=== PATIENT | male | born 1935 | race Caucasian/White ===

== ENCOUNTER → 2020-10-05 13:08 | Outpatient (CLI) | payer MEDICARE, OTHER, SELFPAY ==
--- NOTE | 2020-10-05 13:16 | DI.ECHO.S_ITS ---
[facility]---------+ : : [address] : : : : [id number] : : : : Phone: [phone]---------+ Echocardiogram Report + + :Name: GERALD NELSON Study Date: 10/05/2020 Height: 71 in : :[facility] ReadingLocation: Weight: 323 lb : : Gender: Male BSA: 2.6 m2 : :: 1935 Age: 85 yrs BP: 125/79 mmHg: :Reason For Study: ATRIAL FIBRILLATION : :Ordering Physician: KAMRYN, : :JORDY Najera Performed By: Marcela Campos : :Referring: JORDY HARRY : + + Interpretation Summary Patient was very uncomfortable laying on bed also with pain during apical window. 1) Normal left ventricular size with moderately reduced systolic function (EF about 35%). 2) Mildly enlarged right ventricular size with low normal function. There is a catheter/pacemaker lead seen in the right atrium. 3) There is a moderate dyssynchronous contraction pattern due to the paced rhythm. 4) Both atria are very severely dilated 5) No significant valvular abnormalities. 6) The right ventricular systolic pressure is estimated to be at least 41 mmHg based on an estimated right atrial pressure of 8 mm Hg. 7) Compared to the echo done 04/03/2018, LVEF has decreased from about 40% to about 35% on this study. Procedure: A two-dimensional transthoracic echocardiogram with color flow and Doppler was performed. The study quality was technically difficult. Comparison is made with the echocardiogram of 04/03/2018. The patient has a paced rhythm. The heart rate ranged between 60-74 bpm during the study. Left Ventricle: The left ventricle is grossly normal size. The estimated left ventricular end diastolic volume is 129 ml. There is mild-moderate concentric left ventricular hypertrophy. Left ventricular systolic function is moderately reduced. Left ventricular ejection fraction is estimated to be 35 +/- 5%. There is a moderate dyssynchronous contraction pattern due to the paced rhythm. Diastolic function could not be accurately assessed due to paced rhythm. Right Ventricle: There is a pacemaker lead in the right ventricle. The right ventricle is mildly dilated. Right ventricular systolic function is at the lower limits of normal. Atria: There is severe biatrial enlargement. There is a catheter/pacemaker lead seen in the right atrium. There is no Doppler evidence for an interatrial shunt. Mitral Valve: The mitral valve leaflets are slightly calcified. There is mild mitral annular calcification. There is trace mitral regurgitation. Aortic Valve: The aortic valve is trileaflet. The aortic valve is mildly calcified. There is mild aortic valve sclerosis. There is no aortic valve stenosis. There is trace aortic regurgitation. Tricuspid Valve: The tricuspid valve is not well visualized, but is grossly normal. There is mild tricuspid regurgitation. The right ventricular systolic pressure is estimated to be at least 41 mmHg based on an estimated right atrial pressure of 8 mm Hg. Pulmonic Valve: The pulmonic valve is not well visualized. There is no pulmonic valvular regurgitation. Great Vessels: The aortic root is normal size. The ascending aorta is at the upper limits of normal in size. The IVC is dilated (diameter is greater than 2.1 cm) yet it collapses greater than 50% with a sniff. This suggests a right atrial pressure of 8 mm Hg. Pericardium/ Pleura There is no pericardial effusion. There is no pleural effusion. MMode/2D Measurements & Calculations LVIDd: 6.7 cm LVOT diam: 2.6 cm LVIDs: 5.2 cm Ao root diam: 3.8 cm FS: 21.4 % asc Aorta Diam: 3.9 cm IVSd: 1.2 cm Ao Arch Diam (Prox Trans): 3.1 cm LVPWd: 1.2 cm LV light. diameter/BSA (cm/m^2): 2.6 LV sys. diameter/BSA (cm/m^2): 2.0 LA A2 area: 59.4 cm2 RA long axis: 9.1 cm LA A4 area: 62.7 cm2 RA area: 46.5 cm2 LA length (vol): 10.2 cm RA vol: 202.1 ml LA vol: 310.5 ml RA : 78.2 ml/m2 LA vol index: 120.1 ml/m2 IVC diam: 2.5 cm RVD1 (basal): 4.3 cm TAPSE: 1.8 cm Doppler Measurements & Calculations Ao V2 max: 139.3 cm/sec LVOT Max Annie: 65.1 cm/sec Ao V2 mean: 99.4 cm/sec LV V1 max P.7 mmHg Ao max P.8 mmHg LV V1 VTI: 13.1 cm Ao mean P.4 mmHg BHARGAV(I,D): 2.5 cm2 Ao V2 VTI: 27.2 cm BHARGAV(V,D): 2.4 cm2 sev ratio: 0.48 BHARGAV indexed to BSA (cm^2/m^2): 0.95 MV E max annie: 89.3 cm/sec TR max annie: 288.0 cm/sec MV A max annie: 0.95 cm/sec TR max P.2 mmHg MV E/A: 94.2 PA pr(Accel): 31.0 mmHg Med Peak E' Annie: 8.7 cm/sec E/E' med: 10.3 Lat Peak E' Annie: 9.3 cm/sec E/E' lat: 9.6 E/e' average: 9.9 MV dec time: 0.21 sec SV(LVOT): 67.0 ml Reading Physician:04:27 PM
[2020-10-05 15:38] LABS: Free T4, Direct Thyroxine 1.41 ng/dL (0.78-2.19)
[2020-10-05 15:39] LABS: Alanine Aminotransferase 20 IU/L (<50); Albumin 3.8 g/dL (3.5-5.0); Albumin Globulin Ratio 1.4 (1.0-2.8); Alkaline Phosphatase 106 U/L (38-126); Aspartate Aminotransferase 38 IU/L (17-59); BUN Creatinine Ratio 21.6 (6-22); Bilirubin Total 0.9 mg/dL (0.2-1.3); Blood Urea Nitrogen 30 mg/dL (9-20); Calcium 9.1 mg/dL (8.4-10.2); Carbon Dioxide 30 mmol/L (22-32); Chloride 102 mmol/L (98-107); Estimated Glomerular Filt Rate 48.6 mL/min (>60); Globulin 2.8 g/dL (1.7-4.1); Glucose 88 mg/dL (80-110); HEMOLYSIS < 15 (0-50); Potassium 4.8 mmol/L (3.4-5.1); Sodium 138 mmol/L (137-145); Total Protein 6.6 g/dL (6.3-8.2)
[2020-10-05 15:52] LABS: Thyroid Stimulating Hormone 3.11 uIU/mL (0.47-4.68)
== END ==
PROVIDERS: Family Provider Surgery; PCP Internal Medicine; Referring Provider Physician Assistant; Visit Provider Physician Assistant
DX: I08.2 Rheumatic disorders of both aortic and tricuspid valves (principal); I48.21 Permanent atrial fibrillation; R94.2 Abnormal results of pulmonary function studies; Z95.0 Presence of cardiac pacemaker
CPT/HCPCS: 36415; 80053; 84439; 84443; 93306

== ENCOUNTER 2022-05-12 17:10 | Inpatient (IN) | payer MEDICARE, OTHER, SELFPAY ==
[2022-05-12] VITALS (108 sets, daily range): BP systolic 87–162; BP diastolic 50–72; PULSE 60–163; RESP 18–37; TEMP 36.7; O2SAT 89–100; BMI 37.8
--- NOTE | 2022-05-12 17:23 | DI.RAD.S_ITS ---
PROCEDURE: XR CHEST 1V INDICATIONS: chest pain TECHNIQUE: One view of the chest was acquired. COMPARISON: [facility], CR, XR CHEST 2VW, 07/05/2016, 18:55. [facility], CT, CT CHEST ABDOMEN PELVIS WITHOUT CONTRAST, 02/07/2018, 9:18. FINDINGS: Surgical changes and devices: An AICD is seen. Lungs and pleura: On this semiupright study, no large pneumothorax or large pleural effusion can be seen. Generalized patchy infiltrates are seen. Low lung volumes are noted. This causes a crowded appearance to the lung markings and limits evaluation. Mediastinum: The cardiac contours are moderately enlarged.. The aorta demonstrates calcification and tortuosity. Bones and chest wall: No suspicious bony lesions. Age-appropriate bony degenerative changes are seen. Overlying soft tissues appear unremarkable. IMPRESSION: Generalized patchy infiltrates are seen. Differential diagnosis includes atypical infection and pulmonary edema. There is moderate cardiomegaly. Please consider CHF. Low lung volumes are noted. Postoperative and degenerative changes are seen. Dictated by: Ru Burns M.D. on 05/12/2022 at 16:42 Approved by: Ru Burns M.D. on 05/12/2022 at 16:44
--- NOTE | 2022-05-12 17:32 | PC.NURSE ---
Pt presents with SOB on non-rebreather at 15 L/min at 100%. Cap refill 4-5 seconds. 91% on RA. Placed on NC at 3L at 95% by RT. Provider at bedside. Pt has intermittent cough, recent COVID. Crackles at bases, clear in upper [place]. Pt is responsive to voice. Pt c/o of pain to left chest.
[2022-05-12 17:48] LABS: Add Manual Diff / Slide Review NO; Basophils Absolute Auto 0 /uL (0-100); Basophils Percent Auto 0.2 % (0-2); Eosinophils Absolute Auto 100 /uL (0-450); Eosinophils Percent Auto 0.5 % (2-4); Hematocrit 45.4 % (41-53); Hemoglobin 15.1 g/dL (13.5-17.5); Lymphocytes Absolute Auto 400 /uL (1100-4500); Lymphocytes Percent Auto 2.9 % (25-40); Mean Corpuscular HGB Conc 33.3 % (30-36); Mean Corpuscular Hemoglobin 31.6 PG (26-34); Mean Corpuscular Volume 94.8 fL (80-100); Monocytes Absolute Auto 1800 /uL (0-900); Monocytes Percent Auto 12.6 % (3-14); Neutrophils Absolute Auto 12000 /uL (1500-7000); Neutrophils Percent Auto 83.8 % (50-75); Platelet Count 190 X10^3/uL (150-400); Red Blood Cell Count 4.78 X10^6/uL (4.5-5.9); White Blood Cell Count 14.3 X10^3/uL (4.5-11.0)
--- NOTE | 2022-05-12 17:53 | PC.NURSE ---
Pt is beginning to talk more and joking with this RN and daughters. Pt is alert to place, date of and situation. Pt reports his chest discomfort is feeling lots better.
[2022-05-12 17:57] LABS: Prothrombin Time 46.2 SECONDS (10.1-12.7)
[2022-05-12] MEDS: SODIUM CHLORIDE 0.9% 1,000 ML 1000 ML IV (17:57)
[2022-05-12 18:00] LABS: PTT Partial Thromboplastin Tim 51 SECONDS (26-36)
[2022-05-12 18:01] LABS: Lactate (Lactic Acid) 1.1 mmol/L (0.7-2.1)
[2022-05-12 18:02] LABS: Alanine Aminotransferase 33 IU/L (<50); Albumin 2.6 g/dL (3.5-5.0); Albumin Globulin Ratio 0.8 (1.0-2.8); Alkaline Phosphatase 126 U/L (38-126); Aspartate Aminotransferase 28 IU/L (17-59); BUN Creatinine Ratio 32.7 (6-22); Blood Urea Nitrogen 34 mg/dL (9-20); Calcium 7.3 mg/dL (8.4-10.2); Carbon Dioxide 34 mmol/L (22-32); Chloride 98 mmol/L (98-107); Creatine Kinase < 20 U/L (55-170); Estimated Glomerular Filt Rate > 60 mL/min (>60); Globulin 3.2 g/dL (1.7-4.1); Glucose 96 mg/dL (80-110); HEMOLYSIS 17 (0-50); Lipase 71 U/L (23-300); Potassium 4.1 mmol/L (3.4-5.1); Sodium 135 mmol/L (137-145); Total Protein 5.8 g/dL (6.3-8.2)
[2022-05-12 18:14] LABS: NT-proBNP (BNP-Adult 18+) 1500 pg/mL (<450); Troponin I 0.043 ng/mL (0.01-0.034)
[2022-05-12 18:18] LABS: Procalcitonin 0.15 ng/mL (<0.5)
[2022-05-12 18:24] LABS: Adenovirus Not Detected (Not Detect); B. parapertussis Not Detected (Not Detecte); Bordetella pertussis Not Detected (Not Detecte); Chlamydophila pneumoniae Not Detected (Not Detect); Coronavirus 229E Not Detected (Not Detect); Coronavirus HKU1 Not Detected (Not Detect); Coronavirus NL 63 Not Detected (Not Detect); Coronavirus OC43 Not Detected (Not Detect); Human Metapneumovirus Not Detected (Not Detect); Human Rhinovirus/Enterovirus Not Detected (Not Detect); Influenza A Not Detected (Not Detect); Influenza B Not Detected (Not Detect); Mycoplasma pneumoniae Not Detected (Not Detect); Parainfluenza Virus 1 Not Detected (Not Detect); Parainfluenza Virus 2 Not Detected (Not Detect); Parainfluenza Virus 3 Not Detected (Not Detect); Parainfluenza Virus 4 Not Detected (Not Detect); Respiratory Syncytial Virus Not Detected (Not Detect); SARS- CoV-2 Detected (Not Detecte)
--- NOTE | 2022-05-12 18:29 | ED.GENADULT ---
[facility] Chief complaint: Shortness of Breath/Dyspnea Stated complaint: weakness / hypoxia Time Seen by Provider: 05/12/22 17:23 Source: patient Mode of arrival: EMS History of Present Illness HPI narrative: 86-year-old gentleman discharge from [facility] this morning after an 11 day hospital stay for acute respiratory failure secondary to COVID, COPD exacerbation, chronic atrial fibrillation chronic systolic heart failure he did complete a course of remdesivir and dexamethasone noted to be significantly deconditioned after his extended hospital stay and was discharged to [facility]. Within 90 minutes of arrival at [facility] they were concerned that he was relatively hypotensive and hypoxic. [facility] staff report 83% on room air and 2 L oxygen his sats were in the upper 90s. On discharge the intention was to have him on 1-2 L of oxygen once [facility] get [facility] the [facility] facility and it is not entirely clear that that happened. He does have a filled out POLST form that indicates DNR comfort focused treatment that is up-to-date. Additional history is obtained from both of his daughters who were with him through much of his stay it would be general. They note that for the past 24 hours he actually had been weaned off his oxygen. They also note that it was not until he got to [facility] and then arrived at [facility] that he was complaining of slight left-sided chest pain. That is a new complaint for him. Related Data Allergies Allergy/AdvReac Type Severity Reaction Status Date / Time No Known Drug Allergies Allergy Verified 05/12/22 22:22 Review of Systems Review of Systems Narrative: Remainder of complete review of systems is otherwise unremarkable except for that included in the HPI. Patient History Medical History (Updated 05/12/22 @ 22:11 by Shruthi Castellano MD) Atrial fibrillation BPH (benign prostatic hyperplasia) Congestive heart failure COPD (chronic obstructive pulmonary disease) Dementia Pacemaker Sleep apnea Social History Smoking Status: Former smoker Smoking Status: Former smoker tobacco type: cigarettes alcohol intake frequency: 0-2 drinks per day Substance Use Type: does not use Exam Initial Vital Signs Initial Vital Signs: Vital Signs Pulse Rate 60 05/12/22 17:21 Respiratory Rate 21 05/12/22 17:21 Pulse Oximetry 91 05/12/22 17:21 General: Frail, chronically ill-appearing, breathing comfortably but sleeps through much of the exam with his daughters offering history. HEENT: Dry mucous membranes, normal sclera with reactive pupils, Neck: No JVD, supple Respiratory: Lungs with minor bibasilar crackles, no rhonchi, no wheezing no accessory muscle use., Cardiac: Regular rate and rhythm, 4/6 systolic ejection murmur Abdomen: Soft, nontender, good bowel tones, no flank pain Skin: Warm and dry, chronic venous stasis changes bilaterally lower extremities Neurologic: Globally weak, moving all extremities, minimally interactive with staff. Extremities: No trauma, minimal lower extremity edema at this time Psych: Sleeping and not currently interactive. Course Orders Ordered: ED Orders 05/12/22 17:23 XR chest 1V Stat 05/12/22 17:25 Respiratory Panel (Film Array) Stat 05/12/22 17:40 Blood Culture Stat Complete Blood Count AUTO DIFF Stat Comprehensive Metabolic Panel Stat Lactate (Lactic Acid) Stat Lipase Stat NT-proBNP (BNP-Adult 18+) Stat Partial Thromboplastin Time Stat Procalcitonin Stat Prothrombin Time INR Stat Troponin & CK Cardiac Panel Stat 05/12/22 19:45 Trop I [Troponin I] Stat 05/12/22 21:00 UA Complete [Urinalysis and Microscopic] Stat Urine Culture Stat Discontinued Medications Sodium Chloride (Normal Saline 0.9%) 1,000 mls @ 1,000 mls/hr IV BOLUS ONE Stop: 05/12/22 18:51 Last Infusion: 05/12/22 19:00 Dose: 0 mls/hr Documented By: Admin: 05/12/22 17:57 Dose: 1,000 mls/hr Documented By: SB Ceftriaxone Sodium 2,000 mg/ (Sodium Chloride) 100 mls @ 200 mls/hr IV NOW ONE Stop: 05/12/22 21:57 Last Admin: 05/12/22 22:20 Dose: 200 mls/hr Documented By: SB Furosemide 80 mg/ Sodium (Chloride) 58 mls @ 116 mls/hr IV NOW ONE Stop: 05/12/22 22:03 Last Admin: 05/12/22 22:20 Dose: 116 mls/hr Documented By: SB Lidocaine HCl (Lidocaine 2% (Glydo) 6 Ml Gel) 6 ml TOP NOW ONE Stop: 05/12/22 20:48 Last Admin: 05/12/22 21:15 Dose: 6 ml Documented By: SB Vital Signs Vital signs: Vital Signs - 8 hr 05/12/22 17:40 05/12/22 17:21 05/12/22 17:25 Temperature 98.0 F Pulse Rate 60 60 60 Respiratory Rate 23 21 25 H Blood Pressure 100/59 L Pulse Oximetry 100 91 89 L Oxygen Delivery Method Non -Rebreather Oxygen Flow Rate 15 05/12/22 17:27 05/12/22 17:27 05/12/22 17:28 Temperature Pulse Rate 60 Respiratory Rate 24 Blood Pressure 87/50 L 96/52 L Pulse Oximetry 95 Oxygen Delivery Method Oxygen Flow Rate 05/12/22 17:28 05/12/22 17:30 05/12/22 17:32 Temperature Pulse Rate 60 125 H 80 Respiratory Rate 24 24 23 Blood Pressure Pulse Oximetry 94 95 95 Oxygen Delivery Method Oxygen Flow Rate 05/12/22 17:32 05/12/22 17:35 05/12/22 17:36 Temperature Pulse Rate 61 61 Respiratory Rate 27 H 18 Blood Pressure 106/56 L Pulse Oximetry 95 94 Oxygen Delivery Method Oxygen Flow Rate 05/12/22 17:36 05/12/22 17:40 05/12/22 17:40 Temperature Pulse Rate 64 Respiratory Rate 21 Blood Pressure 97/56 L 102/58 L Pulse Oximetry 95 Oxygen Delivery Method Oxygen Flow Rate 05/12/22 17:44 05/12/22 17:44 05/12/22 17:45 Temperature Pulse Rate 60 60 Respiratory Rate 22 23 Blood Pressure 100/59 L Pulse Oximetry 94 96 Oxygen Delivery Method Oxygen Flow Rate 05/12/22 17:48 05/12/22 17:48 05/12/22 17:50 Temperature Pulse Rate 60 60 Respiratory Rate 30 H 24 Blood Pressure 100/56 L Pulse Oximetry 95 95 Oxygen Delivery Method Oxygen Flow Rate 05/12/22 17:55 05/12/22 17:55 05/12/22 17:56 Temperature Pulse Rate 69 Respiratory Rate 32 H Blood Pressure 101/60 108/58 L Pulse Oximetry 94 Oxygen Delivery Method Oxygen Flow Rate 05/12/22 17:56 05/12/22 18:00 05/12/22 18:00 Temperature Pulse Rate 63 61 Respiratory Rate 27 H 29 H Blood Pressure 105/59 L Pulse Oximetry 94 95 Oxygen Delivery Method Nasal Cannula Oxygen Flow Rate 2 05/12/22 18:04 05/12/22 18:04 05/12/22 18:05 Temperature Pulse Rate 60 60 Respiratory Rate 25 H 24 Blood Pressure 105/59 L Pulse Oximetry 95 95 Oxygen Delivery Method Oxygen Flow Rate 05/12/22 18:09 05/12/22 18:09 05/12/22 18:10 Temperature Pulse Rate 60 60 Respiratory Rate 25 H 25 H Blood Pressure 90/58 L Pulse Oximetry 95 95 Oxygen Delivery Method Oxygen Flow Rate 05/12/22 18:13 05/12/22 18:13 05/12/22 18:15 Temperature Pulse Rate 108 H 110 H Respiratory Rate 29 H 24 Blood Pressure 90/53 L Pulse Oximetry 91 95 Oxygen Delivery Method Oxygen Flow Rate 05/12/22 18:17 05/12/22 18:17 05/12/22 18:20 Temperature Pulse Rate 163 H 60 Respiratory Rate 24 22 Blood Pressure 108/56 L Pulse Oximetry 93 95 Oxygen Delivery Method Oxygen Flow Rate 05/12/22 18:21 05/12/22 18:21 05/12/22 18:24 Temperature Pulse Rate 60 60 Respiratory Rate 23 24 Blood Pressure 102/56 L Pulse Oximetry 95 96 Oxygen Delivery Method Oxygen Flow Rate 05/12/22 18:24 05/12/22 18:25 05/12/22 18:29 Temperature Pulse Rate 60 Respiratory Rate 24 Blood Pressure 108/61 94/68 Pulse Oximetry 97 Oxygen Delivery Method Oxygen Flow Rate 05/12/22 18:29 05/12/22 18:30 05/12/22 18:32 Temperature Pulse Rate 60 60 60 Respiratory Rate 24 21 23 Blood Pressure Pulse Oximetry 96 96 95 Oxygen Delivery Method Oxygen Flow Rate 05/12/22 18:32 05/12/22 18:35 05/12/22 18:36 Temperature Pulse Rate 60 60 Respiratory Rate 23 23 Blood Pressure 116/60 Pulse Oximetry 95 95 Oxygen Delivery Method Oxygen Flow Rate 05/12/22 18:36 05/12/22 18:40 05/12/22 18:40 Temperature Pulse Rate 60 Respiratory Rate 25 H Blood Pressure 112/53 L 94/50 L Pulse Oximetry 96 Oxygen Delivery Method Oxygen Flow Rate 05/12/22 18:45 05/12/22 18:45 05/12/22 18:48 Temperature Pulse Rate 61 Respiratory Rate 23 Blood Pressure 114/55 L 109/55 L Pulse Oximetry 96 Oxygen Delivery Method Nasal Cannula Oxygen Flow Rate 2 05/12/22 18:48 05/12/22 18:50 05/12/22 18:52 Temperature Pulse Rate 61 61 61 Respiratory Rate 22 22 21 Blood Pressure Pulse Oximetry 97 95 96 Oxygen Delivery Method Oxygen Flow Rate 05/12/22 18:52 05/12/22 18:55 05/12/22 18:56 Temperature Pulse Rate 60 60 Respiratory Rate 26 H 27 H Blood Pressure 107/59 L Pulse Oximetry 96 96 Oxygen Delivery Method Oxygen Flow Rate 05/12/22 18:56 05/12/22 19:00 05/12/22 19:00 Temperature Pulse Rate 60 Respiratory Rate 23 Blood Pressure 97/55 L 115/56 L Pulse Oximetry 96 Oxygen Delivery Method Oxygen Flow Rate 05/12/22 19:04 05/12/22 19:04 05/12/22 19:05 Temperature Pulse Rate 61 67 Respiratory Rate 23 23 Blood Pressure 113/58 L Pulse Oximetry 96 96 Oxygen Delivery Method Oxygen Flow Rate 05/12/22 19:08 05/12/22 19:08 05/12/22 19:10 Temperature Pulse Rate 62 63 Respiratory Rate 24 32 H Blood Pressure 125/62 Pulse Oximetry 95 95 Oxygen Delivery Method Oxygen Flow Rate 05/12/22 19:13 05/12/22 19:13 05/12/22 19:15 Temperature Pulse Rate 70 97 H Respiratory Rate 34 H Blood Pressure 118/59 L Pulse Oximetry 97 97 Oxygen Delivery Method Oxygen Flow Rate 05/12/22 19:17 05/12/22 19:17 05/12/22 19:20 Temperature Pulse Rate 73 Respiratory Rate 29 H Blood Pressure 135/60 108/55 L Pulse Oximetry 97 Oxygen Delivery Method Oxygen Flow Rate 05/12/22 19:20 05/12/22 19:24 05/12/22 19:24 Temperature Pulse Rate 63 62 Respiratory Rate 25 H 21 Blood Pressure 103/57 L Pulse Oximetry 96 95 Oxygen Delivery Method Oxygen Flow Rate 05/12/22 19:25 05/12/22 19:28 05/12/22 19:28 Temperature Pulse Rate 68 64 Respiratory Rate 25 H 23 Blood Pressure 99/58 L Pulse Oximetry 95 93 Oxygen Delivery Method Oxygen Flow Rate 05/12/22 19:30 05/12/22 19:32 05/12/22 19:32 Temperature Pulse Rate 63 62 Respiratory Rate 23 26 H Blood Pressure 102/57 L Pulse Oximetry 94 94 Oxygen Delivery Method Oxygen Flow Rate 05/12/22 19:35 05/12/22 19:37 05/12/22 19:37 Temperature Pulse Rate 69 62 Respiratory Rate 31 H 24 Blood Pressure 121/67 Pulse Oximetry 94 93 Oxygen Delivery Method Oxygen Flow Rate 05/12/22 19:40 05/12/22 19:40 05/12/22 19:44 Temperature Pulse Rate 60 62 Respiratory Rate 27 H 25 H Blood Pressure 128/63 Pulse Oximetry 94 94 Oxygen Delivery Method Oxygen Flow Rate 05/12/22 19:44 05/12/22 19:45 05/12/22 19:49 Temperature Pulse Rate 61 60 Respiratory Rate 25 H 24 Blood Pressure 115/59 L Pulse Oximetry 94 93 Oxygen Delivery Method Oxygen Flow Rate 05/12/22 19:49 05/12/22 19:50 05/12/22 19:52 Temperature Pulse Rate 60 63 Respiratory Rate 26 H Blood Pressure 110/60 Pulse Oximetry 94 94 Oxygen Delivery Method Oxygen Flow Rate 05/12/22 19:52 05/12/22 19:55 05/12/22 19:56 Temperature Pulse Rate 61 60 Respiratory Rate Blood Pressure 113/58 L Pulse Oximetry 95 93 Oxygen Delivery Method Nasal Cannula Oxygen Flow Rate 2 05/12/22 19:56 05/12/22 20:00 05/12/22 20:01 Temperature Pulse Rate 62 Respiratory Rate Blood Pressure 109/56 L 120/57 L Pulse Oximetry 93 Oxygen Delivery Method Oxygen Flow Rate 05/12/22 20:01 05/12/22 20:05 05/12/22 20:10 Temperature Pulse Rate 68 66 61 Respiratory Rate 34 H 33 H Blood Pressure Pulse Oximetry 92 92 93 Oxygen Delivery Method Oxygen Flow Rate 05/12/22 20:15 05/12/22 20:15 05/12/22 20:20 Temperature Pulse Rate 60 60 Respiratory Rate Blood Pressure 104/52 L Pulse Oximetry 93 94 Oxygen Delivery Method Oxygen Flow Rate 05/12/22 20:25 05/12/22 20:30 05/12/22 20:30 Temperature Pulse Rate 66 61 Respiratory Rate Blood Pressure 104/56 L Pulse Oximetry 93 93 Oxygen Delivery Method Oxygen Flow Rate 05/12/22 20:35 05/12/22 20:40 05/12/22 20:45 Temperature Pulse Rate 61 60 62 Respiratory Rate Blood Pressure Pulse Oximetry 93 94 93 Oxygen Delivery Method Oxygen Flow Rate 05/12/22 20:46 05/12/22 20:46 05/12/22 20:50 Temperature Pulse Rate 61 65 Respiratory Rate Blood Pressure 136/63 Pulse Oximetry 93 94 Oxygen Delivery Method Oxygen Flow Rate 05/12/22 20:55 05/12/22 21:00 05/12/22 21:05 Temperature Pulse Rate 64 61 78 Respiratory Rate Blood Pressure Pulse Oximetry 94 94 94 Oxygen Delivery Method Oxygen Flow Rate 05/12/22 21:07 05/12/22 21:07 05/12/22 21:10 Temperature Pulse Rate 71 62 Respiratory Rate 24 22 Blood Pressure 144/67 H Pulse Oximetry 94 93 Oxygen Delivery Method Oxygen Flow Rate 05/12/22 21:15 05/12/22 21:20 05/12/22 21:25 Temperature Pulse Rate 60 64 60 Respiratory Rate 23 Blood Pressure Pulse Oximetry 93 94 93 Oxygen Delivery Method Oxygen Flow Rate 05/12/22 21:30 05/12/22 21:35 05/12/22 21:40 Temperature Pulse Rate 62 64 69 Respiratory Rate 22 24 34 H Blood Pressure Pulse Oximetry 93 94 94 Oxygen Delivery Method Oxygen Flow Rate 05/12/22 21:45 05/12/22 21:50 05/12/22 21:55 Temperature Pulse Rate 67 64 68 Respiratory Rate 21 Blood Pressure Pulse Oximetry 92 93 93 Oxygen Delivery Method Oxygen Flow Rate 05/12/22 21:58 05/12/22 21:58 05/12/22 22:00 Temperature Pulse Rate 62 62 Respiratory Rate 23 Blood Pressure 129/64 Pulse Oximetry 91 93 Oxygen Delivery Method Oxygen Flow Rate 05/12/22 22:05 05/12/22 22:10 05/12/22 22:15 Temperature Pulse Rate 60 61 60 Respiratory Rate Blood Pressure Pulse Oximetry 94 94 94 Oxygen Delivery Method Oxygen Flow Rate 05/12/22 22:20 05/12/22 22:20 05/12/22 22:25 Temperature Pulse Rate 61 62 Respiratory Rate 30 H 31 H Blood Pressure 130/62 Pulse Oximetry 93 94 Oxygen Delivery Method Oxygen Flow Rate 05/12/22 22:30 05/12/22 22:30 05/12/22 22:35 Temperature Pulse Rate 65 60 Respiratory Rate 27 H 23 Blood Pressure 130/64 Pulse Oximetry 94 93 Oxygen Delivery Method Nasal Cannula Oxygen Flow Rate 2.5 Medical Decision Making Lab Data Result diagrams: 05/12/22 17:40 05/12/22 17:40 Labs: Lab Results 05/12/22 05/12/22 05/12/22 Range/Units 17:25 17:40 17:40 WBC 14.3 H (4.5-11.0) X10^3/uL RBC 4.78 (4.5-5.9) X10^6/uL Hgb 15.1 (13.5-17.5) g/dL Hct 45.4 (41-53) % MCV 94.8 (80-100) fL MCH 31.6 (26-34) PG MCHC 33.3 (30-36) % RDW 15.0 H (11.6-14.8) % Plt Count 190 (150-400) X10^3/uL Neut % (Auto) 83.8 H (50-75) % Lymph % (Auto) 2.9 L (25-40) % [place] % (Auto) 12.6 (3-14) % Eos % (Auto) 0.5 L (2-4) % Baso % (Auto) 0.2 (0-2) % Neut # (Auto) 83571 H (5532-0255) /uL Lymph # (Auto) 400 L (5497-8524) /uL [place] # (Auto) 1800 H (0-900) /uL Eos # (Auto) 100 (0-450) /uL Baso # (Auto) 0 (0-100) /uL PT 46.2 H (10.1-12.7) SECONDS INR 4.0 H (0.9-1.3) APTT 51 H (26-36) SECONDS Sodium (137-145) mmol/L Potassium (3.4-5.1) mmol/L Chloride (98-107) mmol/L Carbon Dioxide (22-32) mmol/L BUN (9-20) mg/dL Creatinine (0.66-1.25) mg/dL Estimated GFR (>60) mL/min BUN/Creatinine Ratio (6-22) Glucose (80-110) mg/dL Lactate (0.7-2.1) mmol/L Calcium (8.4-10.2) mg/dL Total Bilirubin (0.2-1.3) mg/dL AST (17-59) IU/L ALT (<50) IU/L Alkaline Phosphatase (38-126) U/L Total Creatine Kinase (55-170) U/L CK-MB (CK-2) CK-MB (CK-2) Rel Index Troponin I (0.01-0.034) ng/mL NT-Pro-B Natriuret Pep (<450) pg/mL Total Protein (6.3-8.2) g/dL Albumin (3.5-5.0) g/dL Globulin (1.7-4.1) g/dL Albumin/Globulin Ratio (1.0-2.8) Lipase (23-300) U/L Procalcitonin (<0.5) ng/mL Urine Color Urine Appearance Urine pH (4.5-8.0) Ur Specific [place] (1.000-1.035) Urine Protein (Negative) Urine Glucose (UA) (Negative) g/dL Urine Ketones (NEGATIVE) Urine Occult Blood (Negative) Urine Nitrate (Negative) Urine Bilirubin (NEGATIVE) Urine Urobilinogen (0.2) E.U./dL Ur Leukocyte Esterase (NEGATIVE) Urine RBC (0-5/HPF) Urine WBC (0-5/HPF) Ur Squamous Epith Cells (0-5/HPF) Ur Transition Epith Cell (0-5/HPF) Urine Bacteria (None) Ur Culture Indicated? Chlamy pneumoniae PCR Not detected (Not Detect) Adenovirus (PCR) Not detected (Not Detect) B. pertussis DNA (PCR) Not detected (Not Detecte) B.parapertussis DNA PCR Not detected (Not Detecte) Coronavirus OC43 (PCR) Not detected (Not Detect) Coronavirus HKU1 (PCR) Not detected (Not Detect) Coronavirus 229E (PCR) Not detected (Not Detect) SARS-CoV-2 (PCR) Detected H (Not Detecte) Coronavirus NL63 (PCR) Not detected (Not Detect) Human Metapneumovir PCR Not detected (Not Detect) Influenza Type A (PCR) Not detected (Not Detect) Influenza Type B (PCR) Not detected (Not Detect) M. pneumoniae (PCR) Not detected (Not Detect) Parainfluenza 1 (PCR) Not detected (Not Detect) Parainfluenza 2 (PCR) Not detected (Not Detect) Parainfluenza 3 (PCR) Not detected (Not Detect) Parainfluenza 4 (PCR) Not detected (Not Detect) RSV (PCR) Not detected (Not Detect) Entero/Rhino (PCR) Not detected (Not Detect) 05/12/22 05/12/22 05/12/22 Range/Units 17:40 17:40 19:45 WBC (4.5-11.0) X10^3/uL RBC (4.5-5.9) X10^6/uL Hgb (13.5-17.5) g/dL Hct (41-53) % MCV (80-100) fL MCH (26-34) PG MCHC (30-36) % RDW (11.6-14.8) % Plt Count (150-400) X10^3/uL Neut % (Auto) (50-75) % Lymph % (Auto) (25-40) % [place] % (Auto) (3-14) % Eos % (Auto) (2-4) % Baso % (Auto) (0-2) % Neut # (Auto) (1521-0272) /uL Lymph # (Auto) (7477-6621) /uL [place] # (Auto) (0-900) /uL Eos # (Auto) (0-450) /uL Baso # (Auto) (0-100) /uL PT (10.1-12.7) SECONDS INR (0.9-1.3) APTT (26-36) SECONDS Sodium 135 L (137-145) mmol/L Potassium 4.1 (3.4-5.1) mmol/L Chloride 98 (98-107) mmol/L Carbon Dioxide 34 H (22-32) mmol/L BUN 34 H (9-20) mg/dL Creatinine 1.04 (0.66-1.25) mg/dL Estimated GFR > 60 (>60) mL/min BUN/Creatinine Ratio 32.7 H (6-22) Glucose 96 (80-110) mg/dL Lactate 1.1 (0.7-2.1) mmol/L Calcium 7.3 L (8.4-10.2) mg/dL Total Bilirubin 2.0 H (0.2-1.3) mg/dL AST 28 (17-59) IU/L ALT 33 (<50) IU/L Alkaline Phosphatase 126 (38-126) U/L Total Creatine Kinase < 20 L (55-170) U/L CK-MB (CK-2) TNP CK-MB (CK-2) Rel Index TNP Troponin I 0.043 H 0.040 H (0.01-0.034) ng/mL NT-Pro-B Natriuret Pep 1500 H (<450) pg/mL Total Protein 5.8 L (6.3-8.2) g/dL Albumin 2.6 L (3.5-5.0) g/dL Globulin 3.2 (1.7-4.1) g/dL Albumin/Globulin Ratio 0.8 L (1.0-2.8) Lipase 71 (23-300) U/L Procalcitonin 0.15 (<0.5) ng/mL Urine Color Urine Appearance Urine pH (4.5-8.0) Ur Specific [place] (1.000-1.035) Urine Protein (Negative) Urine Glucose (UA) (Negative) g/dL Urine Ketones (NEGATIVE) Urine Occult Blood (Negative) Urine Nitrate (Negative) Urine Bilirubin (NEGATIVE) Urine Urobilinogen (0.2) E.U./dL Ur Leukocyte Esterase (NEGATIVE) Urine RBC (0-5/HPF) Urine WBC (0-5/HPF) Ur Squamous Epith Cells (0-5/HPF) Ur Transition Epith Cell (0-5/HPF) Urine Bacteria (None) Ur Culture Indicated? Chlamy pneumoniae PCR (Not Detect) Adenovirus (PCR) (Not Detect) B. pertussis DNA (PCR) (Not Detecte) B.parapertussis DNA PCR (Not Detecte) Coronavirus OC43 (PCR) (Not Detect) Coronavirus HKU1 (PCR) (Not Detect) Coronavirus 229E (PCR) (Not Detect) SARS-CoV-2 (PCR) (Not Detecte) Coronavirus NL63 (PCR) (Not Detect) Human Metapneumovir PCR (Not Detect) Influenza Type A (PCR) (Not Detect) Influenza Type B (PCR) (Not Detect) M. pneumoniae (PCR) (Not Detect) Parainfluenza 1 (PCR) (Not Detect) Parainfluenza 2 (PCR) (Not Detect) Parainfluenza 3 (PCR) (Not Detect) Parainfluenza 4 (PCR) (Not Detect) RSV (PCR) (Not Detect) Entero/Rhino (PCR) (Not Detect) 05/12/22 Range/Units 21:00 WBC (4.5-11.0) X10^3/uL RBC (4.5-5.9) X10^6/uL Hgb (13.5-17.5) g/dL Hct (41-53) % MCV (80-100) fL MCH (26-34) PG MCHC (30-36) % RDW (11.6-14.8) % Plt Count (150-400) X10^3/uL Neut % (Auto) (50-75) % Lymph % (Auto) (25-40) % [place] % (Auto) (3-14) % Eos % (Auto) (2-4) % Baso % (Auto) (0-2) % Neut # (Auto) (1278-0926) /uL Lymph # (Auto) (4951-0244) /uL [place] # (Auto) (0-900) /uL Eos # (Auto) (0-450) /uL Baso # (Auto) (0-100) /uL PT (10.1-12.7) SECONDS INR (0.9-1.3) APTT (26-36) SECONDS Sodium (137-145) mmol/L Potassium (3.4-5.1) mmol/L Chloride (98-107) mmol/L Carbon Dioxide (22-32) mmol/L BUN (9-20) mg/dL Creatinine (0.66-1.25) mg/dL Estimated GFR (>60) mL/min BUN/Creatinine Ratio (6-22) Glucose (80-110) mg/dL Lactate (0.7-2.1) mmol/L Calcium (8.4-10.2) mg/dL Total Bilirubin (0.2-1.3) mg/dL AST (17-59) IU/L ALT (<50) IU/L Alkaline Phosphatase (38-126) U/L Total Creatine Kinase (55-170) U/L CK-MB (CK-2) CK-MB (CK-2) Rel Index Troponin I (0.01-0.034) ng/mL NT-Pro-B Natriuret Pep (<450) pg/mL Total Protein (6.3-8.2) g/dL Albumin (3.5-5.0) g/dL Globulin (1.7-4.1) g/dL Albumin/Globulin Ratio (1.0-2.8) Lipase (23-300) U/L Procalcitonin (<0.5) ng/mL Urine Color Yellow Urine Appearance Clear Urine pH 5.0 (4.5-8.0) Ur Specific [place] 1.010 (1.000-1.035) Urine Protein Negative (Negative) Urine Glucose (UA) Negative (Negative) g/dL Urine Ketones Negative (NEGATIVE) Urine Occult Blood Trace-intact (Negative) Urine Nitrate Negative (Negative) Urine Bilirubin Negative (NEGATIVE) Urine Urobilinogen 0.2 (0.2) E.U./dL Ur Leukocyte Esterase Negative (NEGATIVE) Urine RBC 0-1/hpf (0-5/HPF) Urine WBC None seen (0-5/HPF) Ur Squamous Epith Cells None seen (0-5/HPF) Ur Transition Epith Cell 0-1/hpf (0-5/HPF) Urine Bacteria Many (>30) H (None) Ur Culture Indicated? Specimen cultured Chlamy pneumoniae PCR (Not Detect) Adenovirus (PCR) (Not Detect) B. pertussis DNA (PCR) (Not Detecte) B.parapertussis DNA PCR (Not Detecte) Coronavirus OC43 (PCR) (Not Detect) Coronavirus HKU1 (PCR) (Not Detect) Coronavirus 229E (PCR) (Not Detect) SARS-CoV-2 (PCR) (Not Detecte) Coronavirus NL63 (PCR) (Not Detect) Human Metapneumovir PCR (Not Detect) Influenza Type A (PCR) (Not Detect) Influenza Type B (PCR) (Not Detect) M. pneumoniae (PCR) (Not Detect) Parainfluenza 1 (PCR) (Not Detect) Parainfluenza 2 (PCR) (Not Detect) Parainfluenza 3 (PCR) (Not Detect) Parainfluenza 4 (PCR) (Not Detect) RSV (PCR) (Not Detect) Entero/Rhino (PCR) (Not Detect) Imaging Data Chest x-ray: Radiologist's Impression: FINDINGS:? ? Surgical changes and devices:? An AICD is seen.? ? Lungs and pleura:? On this semiupright study, no large pneumothorax or large pleural effusion can be seen.? Generalized patchy infiltrates are seen. Low lung volumes are noted. This causes a crowded appearance to the lung markings and limits evaluation.? ? Mediastinum:? The cardiac contours are moderately enlarged.. The aorta demonstrates calcification and tortuosity. ? Bones and chest wall:? No suspicious bony lesions.? Age-appropriate bony degenerative changes are seen.? Overlying soft tissues appear unremarkable.? ? ? IMPRESSION:? Generalized patchy infiltrates are seen.? Differential diagnosis includes atypical infection and pulmonary edema. ? There is moderate cardiomegaly.? Please consider CHF. ? Low lung volumes are noted. ? Postoperative and degenerative changes are seen.? ? ? Dictated by: Ru Burns M.D. on 05/12/2022 at 16:42 ? ? ECG Data Interpretation: Interptreted by me paced at a rate of 60 MDM Narrative Medical decision making narrative: Patient with COVID pneumonia discharged from [facility] this morning found to be hypoxic with room air at [facility] [place], discharge noted indicated he was supposed to be on 1-2 L. workup today suggests mild leukocytosis however he has just completed a long course of dexamethasone. Extensive records from his 11 day hospital stay are reviewed. He does have continued patchy areas on his chest x-ray consistent with his known COVID diagnosis, he continues to test positive via PCR for COVID. BNP is slightly elevated however that has been an issue. With more aggressive diuresis he had been having difficulties with hypotension there are instructions on daily weights and diuretic management for the [facility] facility. Comparison proBNP is in the under 500 range is currently 1500. Troponin is slightly elevated at 0.043 and repeat is 0.040. EKG is entirely paced. I suspect that he has slight worsening of his congestive heart failure with a troponin leak rather than acute coronary syndrome. Urinalysis does suggest multiple bacteria. Will presume that he is developing a urinary tract infection and will begin ceftriaxone. Lactic acid is not elevated and I do not suspect sepsis at this time. Discussed findings with patient and his daughters. At this time, he appears to have worsening congestive heart failure and on re-evaluation at 10:00 p.m. he is having increased oxygen needs developing basilar crackles after the L of fluid that was given initially for mild hypotension. He will be given 80 mg of Lasix. Cath urinalysis shows bacteria and urinary tract infection may explain the leukocytosis, ceftriaxone was initiated. With shared decision-making we opted to move forward with hospitalization given the worsening that were seeing this afternoon probable urinary tract infection and increasing oxygenation needs over the last hour or so. Will discuss with the hospitalist and anticipate brief admission to get him improved enough to go back to his anticipated [facility] facility and truly begin his rehabilitation after his extended hospitalization for COVID. Discharge Plan Departure Patient Disposition: Admitted as Observation Clinical Impression: Pneumonia due to COVID-19 virus, Elevated troponin Congestive heart failure Qualifiers: Heart failure type: unspecified Heart failure chronicity: acute on chronic Qualified Code(s): I50.9 - Heart failure, unspecified Urinary tract infection Qualifiers: Urinary tract infection type: acute cystitis Hematuria presence: without hematuria Qualified Code(s): N30.00 - Acute cystitis without hematuria
[2022-05-12 21:14] LABS: Appearance Urine UA CLEAR; Bilirubin Urine UA NEGATIVE (NEGATIVE); Color Urine UA YELLOW; Glucose Urine UA NEGATIVE (Negative); Ketones Urine UA NEGATIVE (NEGATIVE); Leukocyte Esterase Urine UA NEGATIVE (NEGATIVE); Nitrite Urine UA NEGATIVE (Negative); Occult Blood Urine UA TRACE-INTACT (Negative); Protein Urine UA NEGATIVE (Negative); Urobilinogen Urine UA 0.2 E.U./dL (0.2)
[2022-05-12] MEDS: LIDOCAINE 2% (GLYDO) 6 ML GEL TOP (21:15)
[2022-05-12 21:20] LABS: Bacteria Urine Many (>30); Culture Indicated Urine Specimen Cultured; RBC Urine 0-1/HPF (0-5/HPF); Squamous Epithelial Cell Urine None Seen (0-5/HPF); Transitional Epi Cells Urine 0-1/HPF (0-5/HPF); WBC Urine None Seen (0-5/HPF)
--- NOTE | 2022-05-12 22:04 | PC.NURSE ---
Pt desated to 90% and states, it's getting hard to breath. Pt placed on 2.5 L via NC and saturation improved to 93%. Provider and RT notified. RT placed pt on oxymask at 2.5L and 94% saturation.
[2022-05-12] MEDS: FUROSEMIDE 80 MG in SODIUM CHLORIDE 0.9% 50 ML 116 MG IV (22:20)
[2022-05-12] MEDS: cefTRIAXone 2,000 MG in SODIUM CHLORIDE 0.9% 100 ML 200 MG IV (22:20)
[2022-05-12] MEDS: VANCOMYCIN 2,000 MG/400 ML PIGGYBACK 200 MG IV (23:52)
[2022-05-13] VITALS (34 sets, daily range): BP systolic 104–127; BP diastolic 56–64; PULSE 61–86; RESP 18–40; TEMP 36.4–36.6; O2SAT 88–97; BMI 37.8
[2022-05-13] MEDS: carvediloL 3.125 MG TABLET 6.25 MG PO ×3 (00:13→21:12)
--- NOTE | 2022-05-13 01:49 | PC.NURSE ---
Vancomycin still running while pt transferred upstairs.
--- NOTE | 2022-05-13 02:41 | P.HP_ITS ---
History of Present Illness History of Present Illness Date Patient Seen: 05/13/22 Time Patient Seen: 00:30 Chief complaint: weakness / hypoxia Narrative: Talha López is an 86-year old male with a history of coronary artery disease, cardiac arrest, atrial fibrillation anticoagulated on warfarin, congestive heart failure, and COPD from [place] who apparently had an extended stay at [facility] for symptomatic COVID from approximately May 01 until today (May 12). I quote from [facility]'s note: ?Talha López just arrived at [facility] rehab at 3:00 p.m. from [facility]. Had COVID-, now COVID negative. Since arriving at 3:00 p.m., having chest pain that is increasing. O2 2 L/minute. 3:30 p.m. blood pressure 96/52 heart rate 60 respiratory rate 18 temperature 98? 83% on room air, oxygen begun at 2 L and increased to 90% on 2 L. ?patient is unable to provide a history and I discussed his case with both the ED provider as well as the patient's daughter, Tania Lofton who is also his DPOA. She states that he did complain of left-sided chest pain and was very worried that his AICD would go off. He is afebrile, blood pressure 106/56, heart rate 63, respiratory rate 36, oxygen saturation of 92% on 2.5 L he weighs 126.3 kg with a BMI of 37.8. His white count is elevated at 14.3 with a left shift, neutrophil count 12,000 his INR is 4.0 sodium 135 troponin was initially 0.043 and then trended down to 0.040 likely demand ischemia, proBNP is 1500, he does have bacteria in his urine which was sent out for culture, flu panel is negative but COVID-19 PCR remains positive. Patient History Medical History Acute on chronic systolic (congestive) heart failure Atrial fibrillation BPH (benign prostatic hyperplasia) Chronic obstructive pulmonary disease with acute respiratory failure Congestive heart failure COPD (chronic obstructive pulmonary disease) Dementia Pacemaker Sleep apnea Supratherapeutic INR Surgical History History of colon surgery History of hernia repair History of permanent cardiac pacemaker placement History of placement of internal cardiac defibrillator Family & Social History Family History Father COPD (chronic obstructive pulmonary disease) Mother Medical history unknown Safety & Behavioral: Feels Safe in Current Yes Environment Been Physically Hurt or No Threatened By a Person Tobacco & Substance use: Smoking Status Former smoker alcohol intake frequency 0-2 drinks per day Substance Use Type does not use Meds Home Medications and Allergies Allergies Allergy/AdvReac Type Severity Reaction Status Date / Time No Known Drug Allergies Allergy Verified 05/12/22 22:22 Review of Systems Review of Systems ROS: Yes unobtainable due to mental status Exam Vital Signs (past 8 hours): - 05/12/22 18:45 05/12/22 18:45 05/12/22 18:48 Pulse Rate 61 Respiratory Rate 23 Blood Pressure 114/55 L 109/55 L Pulse Oximetry 96 Oxygen Delivery Method Nasal Cannula Oxygen Flow Rate 2 05/12/22 18:48 05/12/22 18:50 05/12/22 18:52 Pulse Rate 61 61 61 Respiratory Rate 22 21 Blood Pressure Pulse Oximetry 97 95 96 Oxygen Delivery Method Oxygen Flow Rate 05/12/22 18:52 05/12/22 18:55 05/12/22 18:56 Pulse Rate 60 60 Respiratory Rate 26 H 27 H Blood Pressure 107/59 L Pulse Oximetry 96 96 Oxygen Delivery Method Oxygen Flow Rate 05/12/22 18:56 05/12/22 19:00 05/12/22 19:00 Pulse Rate 60 Respiratory Rate 23 Blood Pressure 97/55 L 115/56 L Pulse Oximetry 96 Oxygen Delivery Method Oxygen Flow Rate 05/12/22 19:04 05/12/22 19:04 05/12/22 19:05 Pulse Rate 61 67 Respiratory Rate 23 23 Blood Pressure 113/58 L Pulse Oximetry 96 96 Oxygen Delivery Method Oxygen Flow Rate 05/12/22 19:08 05/12/22 19:08 05/12/22 19:10 Pulse Rate 62 63 Respiratory Rate 24 32 H Blood Pressure 125/62 Pulse Oximetry 95 95 Oxygen Delivery Method Oxygen Flow Rate 05/12/22 19:13 05/12/22 19:13 05/12/22 19:15 Pulse Rate 70 97 H Respiratory Rate 34 H Blood Pressure 118/59 L Pulse Oximetry 97 97 Oxygen Delivery Method Oxygen Flow Rate 05/12/22 19:17 05/12/22 19:17 05/12/22 19:20 Pulse Rate 73 Respiratory Rate 29 H Blood Pressure 135/60 108/55 L Pulse Oximetry 97 Oxygen Delivery Method Oxygen Flow Rate 05/12/22 19:20 05/12/22 19:24 05/12/22 19:24 Pulse Rate 63 62 Respiratory Rate 25 H 21 Blood Pressure 103/57 L Pulse Oximetry 96 95 Oxygen Delivery Method Oxygen Flow Rate 05/12/22 19:25 05/12/22 19:28 05/12/22 19:28 Pulse Rate 68 64 Respiratory Rate 25 H 23 Blood Pressure 99/58 L Pulse Oximetry 95 93 Oxygen Delivery Method Oxygen Flow Rate 05/12/22 19:30 05/12/22 19:32 05/12/22 19:32 Pulse Rate 63 62 Respiratory Rate 23 26 H Blood Pressure 102/57 L Pulse Oximetry 94 94 Oxygen Delivery Method Oxygen Flow Rate 05/12/22 19:35 05/12/22 19:37 05/12/22 19:37 Pulse Rate 69 62 Respiratory Rate 31 H 24 Blood Pressure 121/67 Pulse Oximetry 94 93 Oxygen Delivery Method Oxygen Flow Rate 05/12/22 19:40 05/12/22 19:40 05/12/22 19:44 Pulse Rate 60 62 Respiratory Rate 27 H 25 H Blood Pressure 128/63 Pulse Oximetry 94 94 Oxygen Delivery Method Oxygen Flow Rate 05/12/22 19:44 05/12/22 19:45 05/12/22 19:49 Pulse Rate 61 60 Respiratory Rate 25 H 24 Blood Pressure 115/59 L Pulse Oximetry 94 93 Oxygen Delivery Method Oxygen Flow Rate 05/12/22 19:49 05/12/22 19:50 05/12/22 19:52 Pulse Rate 60 63 Respiratory Rate 26 H Blood Pressure 110/60 Pulse Oximetry 94 94 Oxygen Delivery Method Oxygen Flow Rate 05/12/22 19:52 05/12/22 19:55 05/12/22 19:56 Pulse Rate 61 60 Respiratory Rate Blood Pressure 113/58 L Pulse Oximetry 95 93 Oxygen Delivery Method Nasal Cannula Oxygen Flow Rate 2 05/12/22 19:56 05/12/22 20:00 05/12/22 20:01 Pulse Rate 62 Respiratory Rate Blood Pressure 109/56 L 120/57 L Pulse Oximetry 93 Oxygen Delivery Method Oxygen Flow Rate 05/12/22 20:01 05/12/22 20:05 05/12/22 20:10 Pulse Rate 68 66 61 Respiratory Rate 34 H 33 H Blood Pressure Pulse Oximetry 92 92 93 Oxygen Delivery Method Oxygen Flow Rate 05/12/22 20:15 05/12/22 20:15 05/12/22 20:20 Pulse Rate 60 60 Respiratory Rate Blood Pressure 104/52 L Pulse Oximetry 93 94 Oxygen Delivery Method Oxygen Flow Rate 05/12/22 20:25 05/12/22 20:30 05/12/22 20:30 Pulse Rate 66 61 Respiratory Rate Blood Pressure 104/56 L Pulse Oximetry 93 93 Oxygen Delivery Method Oxygen Flow Rate 05/12/22 20:35 05/12/22 20:40 05/12/22 20:45 Pulse Rate 61 60 62 Respiratory Rate Blood Pressure Pulse Oximetry 93 94 93 Oxygen Delivery Method Oxygen Flow Rate 05/12/22 20:46 05/12/22 20:46 05/12/22 20:50 Pulse Rate 61 65 Respiratory Rate Blood Pressure 136/63 Pulse Oximetry 93 94 Oxygen Delivery Method Oxygen Flow Rate 05/12/22 20:55 05/12/22 21:00 05/12/22 21:05 Pulse Rate 64 61 78 Respiratory Rate Blood Pressure Pulse Oximetry 94 94 94 Oxygen Delivery Method Oxygen Flow Rate 05/12/22 21:07 05/12/22 21:07 05/12/22 21:10 Pulse Rate 71 62 Respiratory Rate 24 22 Blood Pressure 144/67 H Pulse Oximetry 94 93 Oxygen Delivery Method Oxygen Flow Rate 05/12/22 21:15 05/12/22 21:20 05/12/22 21:25 Pulse Rate 60 64 60 Respiratory Rate 21 23 Blood Pressure Pulse Oximetry 93 94 93 Oxygen Delivery Method Oxygen Flow Rate 05/12/22 21:30 05/12/22 21:35 05/12/22 21:40 Pulse Rate 62 64 69 Respiratory Rate 22 24 34 H Blood Pressure Pulse Oximetry 93 94 94 Oxygen Delivery Method Oxygen Flow Rate 05/12/22 21:45 05/12/22 21:50 05/12/22 21:55 Pulse Rate 67 64 68 Respiratory Rate 21 Blood Pressure Pulse Oximetry 92 93 93 Oxygen Delivery Method Oxygen Flow Rate 05/12/22 21:58 05/12/22 21:58 05/12/22 22:00 Pulse Rate 62 62 Respiratory Rate 23 Blood Pressure 129/64 Pulse Oximetry 91 93 Oxygen Delivery Method Oxygen Flow Rate 05/12/22 22:05 05/12/22 22:10 05/12/22 22:15 Pulse Rate 60 61 60 Respiratory Rate Blood Pressure Pulse Oximetry 94 94 94 Oxygen Delivery Method Oxygen Flow Rate 05/12/22 22:20 05/12/22 22:20 05/12/22 22:25 Pulse Rate 61 62 Respiratory Rate 30 H 31 H Blood Pressure 130/62 Pulse Oximetry 93 94 Oxygen Delivery Method Oxygen Flow Rate 05/12/22 22:30 05/12/22 22:30 05/12/22 22:35 Pulse Rate 65 60 Respiratory Rate 27 H 23 Blood Pressure 130/64 Pulse Oximetry 94 93 Oxygen Delivery Method Nasal Cannula Oxygen Flow Rate 2.5 05/12/22 23:15 05/12/22 23:15 05/12/22 23:20 Pulse Rate 75 62 Respiratory Rate 37 H 34 H Blood Pressure 162/72 H Pulse Oximetry 92 93 Oxygen Delivery Method Oxygen Flow Rate 05/12/22 23:25 05/12/22 23:30 05/12/22 23:30 Pulse Rate 61 65 Respiratory Rate 31 H 24 Blood Pressure 130/59 L Pulse Oximetry 95 93 Oxygen Delivery Method Oxygen Flow Rate 05/12/22 23:35 05/12/22 23:40 05/12/22 23:45 Pulse Rate 65 66 Respiratory Rate 24 24 Blood Pressure 122/64 Pulse Oximetry 95 94 Oxygen Delivery Method Oxygen Flow Rate 05/12/22 23:45 05/12/22 23:50 05/12/22 23:55 Pulse Rate 61 66 63 Respiratory Rate 23 28 H 24 Blood Pressure Pulse Oximetry 93 93 93 Oxygen Delivery Method Oxygen Flow Rate 05/13/22 00:00 05/13/22 00:00 05/13/22 00:05 Pulse Rate 65 70 Respiratory Rate 26 H 31 H Blood Pressure 121/58 L Pulse Oximetry 93 93 Oxygen Delivery Method Oxygen Flow Rate 05/13/22 00:10 05/13/22 00:15 05/13/22 00:16 Pulse Rate 64 65 63 Respiratory Rate 25 H 25 H 24 Blood Pressure Pulse Oximetry 92 92 93 Oxygen Delivery Method Oxygen Flow Rate 05/13/22 00:16 05/13/22 00:20 05/13/22 00:25 Pulse Rate 66 73 Respiratory Rate 26 H 37 H Blood Pressure 104/58 L Pulse Oximetry 91 91 Oxygen Delivery Method Oxygen Flow Rate 05/13/22 00:30 05/13/22 00:31 05/13/22 00:31 Pulse Rate 63 67 Respiratory Rate 29 H 31 H Blood Pressure 117/64 Pulse Oximetry 88 L 89 L Oxygen Delivery Method Oxygen Flow Rate 05/13/22 00:35 05/13/22 00:40 05/13/22 00:45 Pulse Rate 64 65 Respiratory Rate 35 H 33 H Blood Pressure 113/64 Pulse Oximetry 90 L 92 Oxygen Delivery Method Oxygen Flow Rate 05/13/22 00:45 05/13/22 00:50 05/13/22 00:55 Pulse Rate 62 64 69 Respiratory Rate 28 H 27 H 30 H Blood Pressure Pulse Oximetry 92 91 95 Oxygen Delivery Method Oxygen Flow Rate 05/13/22 01:00 05/13/22 01:05 05/13/22 01:10 Pulse Rate 65 70 66 Respiratory Rate 39 H 26 H 31 H Blood Pressure Pulse Oximetry 93 93 93 Oxygen Delivery Method Oxygen Flow Rate 05/13/22 01:15 05/13/22 01:16 05/13/22 01:20 Pulse Rate 65 61 Respiratory Rate 40 H 32 H Blood Pressure 112/59 L Pulse Oximetry 92 94 Oxygen Delivery Method Oxygen Flow Rate 05/13/22 01:25 05/13/22 01:30 05/13/22 01:30 Pulse Rate 66 65 Respiratory Rate 30 H 34 H Blood Pressure 104/57 L Pulse Oximetry 93 92 Oxygen Delivery Method Oxygen Flow Rate 05/13/22 01:35 05/13/22 01:40 05/13/22 01:45 Pulse Rate 86 65 Respiratory Rate 39 H 31 H Blood Pressure 106/56 L Pulse Oximetry 94 93 Oxygen Delivery Method Oxygen Flow Rate 05/13/22 01:45 05/13/22 01:50 05/13/22 01:55 Pulse Rate 65 63 62 Respiratory Rate 31 H 30 H 29 H Blood Pressure Pulse Oximetry 93 95 94 Oxygen Delivery Method Oxygen Flow Rate 05/13/22 02:00 05/13/22 02:05 Pulse Rate 65 63 Respiratory Rate 28 H 36 H Blood Pressure Pulse Oximetry 94 92 Oxygen Delivery Method Oxygen Flow Rate Oxygen Delivery Method Nasal Cannula Oxygen Flow Rate 2.5 Narrative Exam Narrative: Gen: Alert, oriented, ill appearing 86 y.o. male, on CPAP HEENT: normocephalic, atraumatic, conjunctiva clear, sclera non-icteric, oral mucosa pink and moist Neck: supple, full ROM, no JVD, trachea is midline Resp: Lungs sounds restricted, tachypnic CV: RRR, no murmur or rubs Abd: soft, non-tender, normoactive BTs Skin: no lesions or rashes, dry and intact Neuro: appears to be confused, not noted to be his baseline, difficult to speak through CPAP mask Extremities: moves all 4 extremities, is ambulatory, negative David?s sign Psyche: normal mood and affect. Objective Labs Result Diagrams: 05/12/22 17:40 05/12/22 17:40 Labs: Laboratory Results - last 24 hr 05/12/22 05/12/22 05/12/22 17:25 17:40 17:40 WBC 14.3 H RBC 4.78 Hgb 15.1 Hct 45.4 MCV 94.8 MCH 31.6 MCHC 33.3 RDW 15.0 H Plt Count 190 Neut % (Auto) 83.8 H Lymph % (Auto) 2.9 L Ulster % (Auto) 12.6 Eos % (Auto) 0.5 L Baso % (Auto) 0.2 Neut # (Auto) 79415 H Lymph # (Auto) 400 L Ulster # (Auto) 1800 H Eos # (Auto) 100 Baso # (Auto) 0 PT 46.2 H INR 4.0 H APTT 51 H Sodium Potassium Chloride Carbon Dioxide BUN Creatinine Estimated GFR BUN/Creatinine Ratio Glucose Lactate Calcium Total Bilirubin AST ALT Alkaline Phosphatase Total Creatine Kinase CK-MB (CK-2) CK-MB (CK-2) Rel Index Troponin I NT-Pro-B Natriuret Pep Total Protein Albumin Globulin Albumin/Globulin Ratio Lipase Procalcitonin Urine Color Urine Appearance Urine pH Ur Specific Garnett Urine Protein Urine Glucose (UA) Urine Ketones Urine Occult Blood Urine Nitrate Urine Bilirubin Urine Urobilinogen Ur Leukocyte Esterase Urine RBC Urine WBC Ur Squamous Epith Cells Ur Transition Epith Cell Urine Bacteria Ur Culture Indicated? Chlamy pneumoniae PCR Not detected Adenovirus (PCR) Not detected B. pertussis DNA (PCR) Not detected B.parapertussis DNA PCR Not detected Coronavirus OC43 (PCR) Not detected Coronavirus HKU1 (PCR) Not detected Coronavirus 229E (PCR) Not detected SARS-CoV-2 (PCR) Detected H Coronavirus NL63 (PCR) Not detected Human Metapneumovir PCR Not detected Influenza Type A (PCR) Not detected Influenza Type B (PCR) Not detected M. pneumoniae (PCR) Not detected Parainfluenza 1 (PCR) Not detected Parainfluenza 2 (PCR) Not detected Parainfluenza 3 (PCR) Not detected Parainfluenza 4 (PCR) Not detected RSV (PCR) Not detected Entero/Rhino (PCR) Not detected 05/12/22 05/12/22 05/12/22 17:40 17:40 19:45 WBC RBC Hgb Hct MCV MCH MCHC RDW Plt Count Neut % (Auto) Lymph % (Auto) Ul[place] % (Auto) Eos % (Auto) Baso % (Auto) Neut # (Auto) Lymph # (Auto) [place] # (Auto) Eos # (Auto) Baso # (Auto) PT INR APTT Sodium 135 L Potassium 4.1 Chloride 98 Carbon Dioxide 34 H BUN 34 H Creatinine 1.04 Estimated GFR > 60 BUN/Creatinine Ratio 32.7 H Glucose 96 Lactate 1.1 Calcium 7.3 L Total Bilirubin 2.0 H AST 28 ALT 33 Alkaline Phosphatase 126 Total Creatine Kinase < 20 L CK-MB (CK-2) TNP CK-MB (CK-2) Rel Index TNP Troponin I 0.043 H 0.040 H NT-Pro-B Natriuret Pep 1500 H Total Protein 5.8 L Albumin 2.6 L Globulin 3.2 Albumin/Globulin Ratio 0.8 L Lipase 71 Procalcitonin 0.15 Urine Color Urine Appearance Urine pH Ur Specific Garnett Urine Protein Urine Glucose (UA) Urine Ketones Urine Occult Blood Urine Nitrate Urine Bilirubin Urine Urobilinogen Ur Leukocyte Esterase Urine RBC Urine WBC Ur Squamous Epith Cells Ur Transition Epith Cell Urine Bacteria Ur Culture Indicated? Chlamy pneumoniae PCR Adenovirus (PCR) B. pertussis DNA (PCR) B.parapertussis DNA PCR Coronavirus OC43 (PCR) Coronavirus HKU1 (PCR) Coronavirus 229E (PCR) SARS-CoV-2 (PCR) Coronavirus NL63 (PCR) Human Metapneumovir PCR Influenza Type A (PCR) Influenza Type B (PCR) M. pneumoniae (PCR) Parainfluenza 1 (PCR) Parainfluenza 2 (PCR) Parainfluenza 3 (PCR) Parainfluenza 4 (PCR) RSV (PCR) Entero/Rhino (PCR) 05/12/22 21:00 WBC RBC Hgb Hct MCV MCH MCHC RDW Plt Count Neut % (Auto) Lymph % (Auto) [place] % (Auto) Eos % (Auto) Baso % (Auto) Neut # (Auto) Lymph # (Auto) [place] # (Auto) Eos # (Auto) Baso # (Auto) PT INR APTT Sodium Potassium Chloride Carbon Dioxide BUN Creatinine Estimated GFR BUN/Creatinine Ratio Glucose Lactate Calcium Total Bilirubin AST ALT Alkaline Phosphatase Total Creatine Kinase CK-MB (CK-2) CK-MB (CK-2) Rel Index Troponin I NT-Pro-B Natriuret Pep Total Protein Albumin Globulin Albumin/Globulin Ratio Lipase Procalcitonin Urine Color Yellow Urine Appearance Clear Urine pH 5.0 Ur Specific Garnett 1.010 Urine Protein Negative Urine Glucose (UA) Negative Urine Ketones Negative Urine Occult Blood Trace-intact Urine Nitrate Negative Urine Bilirubin Negative Urine Urobilinogen 0.2 Ur Leukocyte Esterase Negative Urine RBC 0-1/hpf Urine WBC None seen Ur Squamous Epith Cells None seen Ur Transition Epith Cell 0-1/hpf Urine Bacteria Many (>30) H Ur Culture Indicated? Specimen cultured Chlamy pneumoniae PCR Adenovirus (PCR) B. pertussis DNA (PCR) B.parapertussis DNA PCR Coronavirus OC43 (PCR) Coronavirus HKU1 (PCR) Coronavirus 229E (PCR) SARS-CoV-2 (PCR) Coronavirus NL63 (PCR) Human Metapneumovir PCR Influenza Type A (PCR) Influenza Type B (PCR) M. pneumoniae (PCR) Parainfluenza 1 (PCR) Parainfluenza 2 (PCR) Parainfluenza 3 (PCR) Parainfluenza 4 (PCR) RSV (PCR) Entero/Rhino (PCR) Assessment & Plan Assessment & Plan narrative: Talha López is admitted for acute respiratory failure likely in the setting of acute on chronic CHF and COPD exacerbations and COVID-19 recovery. Acute respiratory failure, present on admission * RT is working with him for supplemental oxygen needs * He will receive albuterol and DuoNeb nebulizers * He received a 1 time dose of IV vancomycin and ceftriaxone in the emergency department for suspected UTI and HAP pneumonia. Vancomycin and ceftriaxone will be continued. Acute on chronic CHF exacerbation, acute, present on admission with a CHADS VASC score of 5 * Review of [facility] records stated that the patient had his last echocardiogram 4 years ago however in our records we have an echocardiogram from 2020 indicating that the patient has a 35 ejection fraction and is not currently on an ARB but is taking a beta leelee. * Patient has a history of atrial fibrillation and is paced with an AICD. 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 * Repeat complete echo in the morning. Supratherapeutic INR of 4.0, present on admission * Patient appears to normally take warfarin 2 mg daily and will hold. Coronary artery disease, chronic * Continue home dose of atorvastatin 10 mg p.o. daily COVID-19, tested positive on May 01 * Patient received a 6 day course of IV remdesivir as well as dexamethasone. * He is still testing positive so airborne precautions are ordered. Urinary tract infection, presumed to be acute, present on admission * Culture is pending * Coverage with IV vancomycin and ceftriaxone Advanced care planning * Patient has a POLST that was filled out at [facility] indicating he is a DNR/DNI on comfort measures only. Tania, his daughter states that he has a POLST form on his refrigerator in his home. It appears that he is a DNR/DNI but wants limited intervention. Daughter will contact the daytime provider to update or invalidate the POLST form that was prepared by [facility] as it appears it does not reflect what the patient or family desires. * Time spent on advanced care plannin minutes. VTE Prophylaxis: Wells risk score 0 C Bilateral SCDs Patient is currently anticoagulated on warfarin and is currently supratherapeutic. Patient is admitted to the inpatient service due to the severity of disease, risks of further disease progression and this stay is expected to exceed 2 midnights. FEN: IV fluids: Saline lock, diet: Heart healthy, labs: CBC, C/BMP, liver enzymes, Mag, PT/INR Consultants None Dispo: Plan was for the patient to go into rehab though he has expressed a de sire to return home with the nursing hours that he has. Code status: DNR/DNI as discussed with the patient who identifies [] as [] his [] her surrogate and POA. [X] I have utilized all available immediate resources to obtain, update, or review of the patient's current medications VTE Deep Vein Thrombosis/Pulmonary Embolism Present on Admission: No MIPS - Admit I confirm the patient?s Advance Care Plan is present, Code status is documented, Surrogate decision maker is in patient?s record: Yes COVID-19 COVID-19 status: Positive Result date/Date tested (Pos, Neg/Pending): 05/12/22 Scores CHADS-VASc Congestive heart failure: yes Hypertension: yes Age 75 years or older: yes Diabetes mellitus: no Stroke, TIA, or TE: no Vascular disease: yes Age 65 to 74 years: no Sex category (female): Male CHADS-VASc Score: 5 Quality MIPS - DC The patient has a history of heart transplant or Left Ventricular Assist Device (LVAD). If yes, STOP here.: Yes A. The patient was prescribed or already taking an Angiotensin-Converting Enzyme (SAMI) Inhibitor, or Angiotensin Receptor Leelee (ARB).: No B. The patient was prescribed or already taking a beta-leelee. [If Yes to Both A & B, STOP here]: Yes Patient not prescribed/taking SAMI or ARB for medical/patient reason(s) including (ex: allergy, intolerance, contraindication).: Unknown. Will obtain cardiology records.
[2022-05-13] MEDS: FUROSEMIDE 40 MG/4 ML VIAL IV (11:27)
[2022-05-13 12:03] LABS: Magnesium 1.9 mg/dL (1.6-2.3)
--- NOTE | 2022-05-13 12:18 | CM.DANOTE ---
Patient is an 86 yo male who was admitted on 05/12/22 for Weakness/Hypoxia. Pt has [employer] for insurance and his PCP is Gaurav Borja. EMR was reviewed. Per , pt with hx of recent COVID+ pneumonia at [facility] and now admitted for Resp Failure/CHF/COPD from recovery of COVID and possible UTI. Per RN, pt currently on COVID precautions as still testing positive from initial COVID and confused due to his oxygen levels and maybe UTI and requiring 2PA currently. SW confirmed with [facility] admissions that pt had just discharged from [facility] from his stay 05/01/22-05/12/22 to their facility yesterday and was in their building less than a few hours when he admitted to [facility]. [facility] can accept pt back when medically stable and pt already has Medicare qualifying stay from [facility] and pt's COVID+ is not a barrier as he is outside of his need for quarantine from initial positive test. No PASRR needed as pt was admitted from SNF. [facility] states per Dtr, pt lives alone in [place] but has local supportive family and PP CG 4-5 hours a day and maybe a visiting nurse and family states pt typically is not very confused but when his oxygen levels are lower or UTI he gets much more confused. SW left Dtr/DPOA Tania lind msg requesting call back to confirm if they would like pt to d/c back to [facility]. Return call from Jane confirming they would like pt to d/c to [facility] when medically stable. Plan: SW to follow closely for pt to improve towards returning to [facility] SNF rehab when medically stable and no 3 night stay needed as pt recently had a qualifying stay from [facility]. No PASRR needed either. DIANA Young Discharge Planning/Care Management Advanced directive, confirm from FAMILY Start: 05/13/22 03:36 Freq: Q24H Status: Active Protocol: Document 05/13/22 09:12 YAD (Rec: 05/13/22 09:12 YAD [id number]) Advance Directive, confirm on record Time 09:12 Person contacted patient Copy received No CM Discharge Assessment Start: 05/13/22 12:15 Freq: Status: Active Protocol: Document 05/13/22 12:15 BF (Rec: 05/13/22 12:18 BF [id number]) Discharge Planning Assessment Assigned Manager Laundry DIANA Tan DPOA/Assigned Designee Name Dtr Tania Parker Contact Information [phone] Advance Directives? Yes Advance Directives on File No History Provided By Family Member,Medical Record Has Patient been admitted in last 30 No days? Comment recently was admitted to [facility] from 05/01- for COVID pneumonia Prior Living Arrangements House Household Members none Comment Has PP CG 4-5 hours a day Type of transporation used prior to Relies on Others admit Independent with ADL's No Is patient alert and oriented? Yes: mostly, has some confusion at times Needs Assistance With Meal Prep,Managing Medications ,Home Chores / Shopping Caregiver for Another No Patient/Family Preference [facility] Facility Barriers to Discharge No Discharge Plan Penit[facility]iary Facility Transportation Arrangement SNF facility van Referrals Initiated [facility]it[facility]iary If patient plan is SNF: Has PASSR been No: none needed as pt was completed? admitted from SNF Review Status In Process Please Provide Date Initial DC 05/13/22 Assessment Was Performed Next Review Type Continued Stay Review
--- NOTE | 2022-05-13 14:13 | P.PN_ITS ---
Subjective Subjective Date Patient Seen: 05/13/22 Time Patient Seen: 08:00 Interval history: He looks uncomfortable. He denies any complaints though. Exam Vital Signs (past 8 hours): - 05/13/22 08:38 05/13/22 09:06 05/13/22 11:41 Temperature 97.8 F Pulse Rate 74 Respiratory Rate 18 Blood Pressure 127/56 L Pulse Oximetry 92 94 Oxygen Delivery Method Nasal Cannula Oxygen Flow Rate 3 2 Oxygen Delivery Method Nasal Cannula Oxygen Flow Rate 2 Narrative Exam Narrative: Gen: chronically ill appearing, disheveled, confused Resp: decreased breath sounds bilaterally CV: regular rate and rhythm Abd: soft, non-tender, nondistended Objective Labs Result Diagrams: 05/12/22 17:40 05/12/22 17:40 Labs: Laboratory Results - last 24 hr 05/12/22 05/12/22 05/12/22 17:25 17:40 17:40 WBC 14.3 H RBC 4.78 Hgb 15.1 Hct 45.4 MCV 94.8 MCH 31.6 MCHC 33.3 RDW 15.0 H Plt Count 190 Neut % (Auto) 83.8 H Lymph % (Auto) 2.9 L Dubois % (Auto) 12.6 Eos % (Auto) 0.5 L Baso % (Auto) 0.2 Neut # (Auto) 10834 H Lymph # (Auto) 400 L Dubois # (Auto) 1800 H Eos # (Auto) 100 Baso # (Auto) 0 PT 46.2 H INR 4.0 H APTT 51 H Sodium Potassium Chloride Carbon Dioxide BUN Creatinine Estimated GFR BUN/Creatinine Ratio Glucose Lactate Calcium Magnesium Total Bilirubin AST ALT Alkaline Phosphatase Total Creatine Kinase CK-MB (CK-2) CK-MB (CK-2) Rel Index Troponin I NT-Pro-B Natriuret Pep Total Protein Albumin Globulin Albumin/Globulin Ratio Lipase Procalcitonin Urine Color Urine Appearance Urine pH Ur Specific [place] Urine Protein Urine Glucose (UA) Urine Ketones Urine Occult Blood Urine Nitrate Urine Bilirubin Urine Urobilinogen Ur Leukocyte Esterase Urine RBC Urine WBC Ur Squamous Epith Cells Ur Transition Epith Cell Urine Bacteria Ur Culture Indicated? Chlamy pneumoniae PCR Not detected Adenovirus (PCR) Not detected B. pertussis DNA (PCR) Not detected B.parapertussis DNA PCR Not detected Coronavirus OC43 (PCR) Not detected Coronavirus HKU1 (PCR) Not detected Coronavirus 229E (PCR) Not detected SARS-CoV-2 (PCR) Detected H Coronavirus NL63 (PCR) Not detected Human Metapneumovir PCR Not detected Influenza Type A (PCR) Not detected Influenza Type B (PCR) Not detected M. pneumoniae (PCR) Not detected Parainfluenza 1 (PCR) Not detected Parainfluenza 2 (PCR) Not detected Parainfluenza 3 (PCR) Not detected Parainfluenza 4 (PCR) Not detected RSV (PCR) Not detected Entero/Rhino (PCR) Not detected 05/12/22 05/12/22 05/12/22 17:40 17:40 19:45 WBC RBC Hgb Hct MCV MCH MCHC RDW Plt Count Neut % (Auto) Lymph % (Auto) Dubois % (Auto) Eos % (Auto) Baso % (Auto) Neut # (Auto) Lymph # (Auto) Dubois # (Auto) Eos # (Auto) Baso # (Auto) PT INR APTT Sodium 135 L Potassium 4.1 Chloride 98 Carbon Dioxide 34 H BUN 34 H Creatinine 1.04 Estimated GFR > 60 BUN/Creatinine Ratio 32.7 H Glucose 96 Lactate 1.1 Calcium 7.3 L Magnesium 1.9 Total Bilirubin 2.0 H AST 28 ALT 33 Alkaline Phosphatase 126 Total Creatine Kinase < 20 L CK-MB (CK-2) TNP CK-MB (CK-2) Rel Index TNP Troponin I 0.043 H 0.040 H NT-Pro-B Natriuret Pep 1500 H Total Protein 5.8 L Albumin 2.6 L Globulin 3.2 Albumin/Globulin Ratio 0.8 L Lipase 71 Procalcitonin 0.15 Urine Color Urine Appearance Urine pH Ur Specific [place] Urine Protein Urine Glucose (UA) Urine Ketones Urine Occult Blood Urine Nitrate Urine Bilirubin Urine Urobilinogen Ur Leukocyte Esterase Urine RBC Urine WBC Ur Squamous Epith Cells Ur Transition Epith Cell Urine Bacteria Ur Culture Indicated? Chlamy pneumoniae PCR Adenovirus (PCR) B. pertussis DNA (PCR) B.parapertussis DNA PCR Coronavirus OC43 (PCR) Coronavirus HKU1 (PCR) Coronavirus 229E (PCR) SARS-CoV-2 (PCR) Coronavirus NL63 (PCR) Human Metapneumovir PCR Influenza Type A (PCR) Influenza Type B (PCR) M. pneumoniae (PCR) Parainfluenza 1 (PCR) Parainfluenza 2 (PCR) Parainfluenza 3 (PCR) Parainfluenza 4 (PCR) RSV (PCR) Entero/Rhino (PCR) 05/12/22 21:00 WBC RBC Hgb Hct MCV MCH MCHC RDW Plt Count Neut % (Auto) Lymph % (Auto) Dubois % (Auto) Eos % (Auto) Baso % (Auto) Neut # (Auto) Lymph # (Auto) Dubois # (Auto) Eos # (Auto) Baso # (Auto) PT INR APTT Sodium Potassium Chloride Carbon Dioxide BUN Creatinine Estimated GFR BUN/Creatinine Ratio Glucose Lactate Calcium Magnesium Total Bilirubin AST ALT Alkaline Phosphatase Total Creatine Kinase CK-MB (CK-2) CK-MB (CK-2) Rel Index Troponin I NT-Pro-B Natriuret Pep Total Protein Albumin Globulin Albumin/Globulin Ratio Lipase Procalcitonin Urine Color Yellow Urine Appearance Clear Urine pH 5.0 Ur Specific [place] 1.010 Urine Protein Negative Urine Glucose (UA) Negative Urine Ketones Negative Urine Occult Blood Trace-intact Urine Nitrate Negative Urine Bilirubin Negative Urine Urobilinogen 0.2 Ur Leukocyte Esterase Negative Urine RBC 0-1/hpf Urine WBC None seen Ur Squamous Epith Cells None seen Ur Transition Epith Cell 0-1/hpf Urine Bacteria Many (>30) H Ur Culture Indicated? Specimen cultured Chlamy pneumoniae PCR Adenovirus (PCR) B. pertussis DNA (PCR) B.parapertussis DNA PCR Coronavirus OC43 (PCR) Coronavirus HKU1 (PCR) Coronavirus 229E (PCR) SARS-CoV-2 (PCR) Coronavirus NL63 (PCR) Human Metapneumovir PCR Influenza Type A (PCR) Influenza Type B (PCR) M. pneumoniae (PCR) Parainfluenza 1 (PCR) Parainfluenza 2 (PCR) Parainfluenza 3 (PCR) Parainfluenza 4 (PCR) RSV (PCR) Entero/Rhino (PCR) [facility] Medical History Acute on chronic systolic (congestive) heart failure Atrial fibrillation BPH (benign prostatic hyperplasia) Chronic obstructive pulmonary disease with acute respiratory failure Congestive heart failure COPD (chronic obstructive pulmonary disease) Dementia Pacemaker Sleep apnea Supratherapeutic INR Surgical History History of colon surgery History of hernia repair History of permanent cardiac pacemaker placement History of placement of internal cardiac defibrillator Family History Father COPD (chronic obstructive pulmonary disease) Mother Medical history unknown Social History household members: none Smoking Status: Former smoker Assessment & Plan Assessment & Plan narrative: Talha López is admitted for chronic respiratory failure likely in the setting of acute on chronic CHF and COPD exacerbations and recent COVID infection Chronic respiratory failure -was just discharged on oxygen to SNF due to COVID infection and CHF -was supposed to be on oxygen per DC summary -per ED note patient was hypoxic at SNF because he was not on oxygen and rather than placing him on oxygen they just sent him back to ED Acute on chronic CHFrEF -EF last noted at 35% in 2020 -likely had exacerbation as he had worsening dyspnea after fluid bolus in ED -continue IV diuresis Atrial fibrillation, chronic with history of AICD -INR on admit elevated -hold coumadin, check INR daily Coronary artery disease, chronic -Continue home dose of atorvastatin 10 mg p.o. daily COVID-19 -no indication for further treatment as he did get full treatment during last hospitalization Urinary tract infection, presumed to be acute, present on admission -culture pending -continue ceftriaxone CODE: DNR/DNI COVID-19 COVID-19 status: Positive Result date/Date tested (Pos, Neg/Pending): 05/12/22 Time Spent With Patient Critical Care time: I spent a total of [] minutes of critical care time on this patient's care today; this time is exclusive of procedural time.
[2022-05-13] MEDS: cefTRIAXone 1,000 MG in SODIUM CHLORIDE 0.9% 100 ML 200 MG IV (14:57)
[2022-05-13] MEDS: TAMSULOSIN 0.4 MG CAPSULE PO (21:13)
[2022-05-13] MEDS: ATORVASTATIN 20 MG TABLET 10 MG PO (21:13)
--- NOTE | 2022-05-13 22:10 | PC.NURSE ---
Addendum entered by Debbie Sam R.N. 05/14/22 03:06: Patient appearing less anxious, able to redirect pt. easier. not calling as much for somebody to just be with him. Able to place home cpap mask on patient and going back to sleep. Addendum entered by Debbie Sam R.N. 05/14/22 01:31: Patient medicated with melatonin and reglan slowly and patient becoming drowsy. pt. reassured and checked upon frequently. Patient with history of sleep apnea, not willing to wear mask. Will try again soon in an attempt to get him to wear it. Addendum entered by Debbie Sam R.N. 05/14/22 00:59: Patient calling every 1-2 minutes, not knowing what he wants. says that he is anxious. Talked to Guillermo conway doctor and new medications noted. Original Note: Patient only oriented to self, reassured that he is safe and in the hospital. No shortness of breath noticed, turned onto side with assist of 1 person.
[2022-05-14] VITALS: BP 120/65; PULSE 62; RESP 22; TEMP 36.6; O2SAT 92
[2022-05-14] MEDS: METOCLOPRAMIDE 10 MG/2 ML INJ 5 MG IV (01:02)
[2022-05-14] MEDS: MELATONIN 3 MG TABLET PO (01:02)
[2022-05-14 01:27] LABS: INR 3.9 (0.9-1.3); Prothrombin Time 45.3 SECONDS (10.1-12.7)
[2022-05-14] MEDS: FUROSEMIDE 40 MG/4 ML VIAL IV (05:50)
[2022-05-14 06:00] VITALS: BP 114/66; PULSE 62; RESP 20; TEMP 36.4; O2SAT 92
[2022-05-14 08:00] VITALS: BP 135/65; PULSE 60; RESP 20; TEMP 36.6; O2SAT 92
[2022-05-14 09:44] VITALS: BP 135/65; PULSE 60
[2022-05-14] MEDS: carvediloL 3.125 MG TABLET 6.25 MG PO (09:44)
[2022-05-14] MEDS: LORazepam 0.5 MG TABLET PO (11:57)
[2022-05-14 12:38] LABS: Hematocrit 44.7 % (41-53); Hemoglobin 14.7 g/dL (13.5-17.5); Mean Corpuscular HGB Conc 32.9 % (30-36); Mean Corpuscular Hemoglobin 31.6 PG (26-34); Mean Corpuscular Volume 96.2 fL (80-100); Platelet Count 150 X10^3/uL (150-400); Red Blood Cell Count 4.65 X10^6/uL (4.5-5.9); Red Cell Distribution Width 14.7 % (11.6-14.8); White Blood Cell Count 13.4 X10^3/uL (4.5-11.0)
[2022-05-14 12:55] LABS: Blood Urea Nitrogen 36 mg/dL (9-20); Calcium 7.5 mg/dL (8.4-10.2); Carbon Dioxide 32 mmol/L (22-32); Chloride 96 mmol/L (98-107); Estimated Glomerular Filt Rate > 60 mL/min (>60); Glucose 89 mg/dL (80-110); HEMOLYSIS 18 (0-50); Sodium 136 mmol/L (137-145)
[2022-05-14 13:00] VITALS: BP 106/54; PULSE 60; RESP 16; TEMP 36.6; O2SAT 90
--- NOTE | 2022-05-14 13:51 | PM.DS.1 ---
History of Present Illness History of Present Illness Date Patient Seen: 05/13/22 Time Patient Seen: 00:30 Chief complaint: weakness / hypoxia Narrative: Per addmting provider: Talha López is an 86-year old male with a history of coronary artery disease, cardiac arrest, atrial fibrillation anticoagulated on warfarin, congestive heart failure, and COPD from [place] who apparently had an extended stay at [facility] for symptomatic COVID from approximately May 01 until today (May 12). I quote from [facility]'s note: ?Talha López just arrived at [facility] rehab at 3:00 p.m. from [facility]. Had COVID-, now COVID negative. Since arriving at 3:00 p.m., having chest pain that is increasing. O2 2 L/minute. 3:30 p.m. blood pressure 96/52 heart rate 60 respiratory rate 18 temperature 98? 83% on room air, oxygen begun at 2 L and increased to 90% on 2 L. ?patient is unable to provide a history and I discussed his case with both the ED provider as well as the patient's daughter, Tania Lofton who is also his DPOA. She states that he did complain of left-sided chest pain and was very worried that his AICD would go off. He is afebrile, blood pressure 106/56, heart rate 63, respiratory rate 36, oxygen saturation of 92% on 2.5 L he weighs 126.3 kg with a BMI of 37.8. His white count is elevated at 14.3 with a left shift, neutrophil count 12,000 his INR is 4.0 sodium 135 troponin was initially 0.043 and then trended down to 0.040 likely demand ischemia, proBNP is 1500, he does have bacteria in his urine which was sent out for culture, flu panel is negative but COVID-19 PCR remains positive. Discharge Providers Provider Date of admission: 05/12/22 23:23 Discharge Date: 05/14/22 Primary care physician: Gaurav Borja MD Discharge provider: Ervin Herrera MD Summary Hospital Course Discharge Diagnosis: 1. Chronic respiratory failure from recent COVID infection 2. Acute on chronic CHFrEF 3. Atrial fibrillation, chronic with history of AICD 4. CAD 5. Possible UTI Hospital Course: Mr. López was admitted and given lasix for his CHF. He did well. He had a possible UTI and was placed on antibiotics. He should continue taking this medication through 05/17/22. He was anxious in the hospital and felt better with a little bit of ativan. He will likely need oxygen for a few weeks given his recent severe COVID infection. He is discharged back to SNF for further physical therapy. Exam Vital Signs (past 8 hours): - 05/14/22 06:00 05/14/22 08:00 05/14/22 09:44 Temperature 97.5 F L 97.9 F Pulse Rate 62 60 60 Respiratory Rate 20 20 Blood Pressure 114/66 135/65 135/65 Pulse Oximetry 92 92 Oxygen Flow Rate 2 4 Oxygen Delivery Method Room Air Oxygen Flow Rate 4 Narrative Exam Narrative: Gen: chronically ill appearing, disheveled, confused Resp: decreased breath sounds bilaterally CV: regular rate and rhythm Abd: soft, non-tender, nondistended Objective Labs Result Diagrams: 05/14/22 12:30 05/14/22 12:30 Labs: Laboratory Results - last 24 hr 05/14/22 05/14/22 05/14/22 01:08 12:30 12:30 WBC 13.4 H RBC 4.65 Hgb 14.7 Hct 44.7 MCV 96.2 MCH 31.6 MCHC 32.9 RDW 14.7 Plt Count 150 PT 45.3 H INR 3.9 H Sodium 136 L Potassium 3.0 L Chloride 96 L Carbon Dioxide 32 BUN 36 H Creatinine 1.06 Estimated GFR > 60 BUN/Creatinine Ratio 34.0 H Glucose 89 Calcium 7.5 L PFSH Medical History Acute on chronic systolic (congestive) heart failure Atrial fibrillation BPH (benign prostatic hyperplasia) Chronic obstructive pulmonary disease with acute respiratory failure Congestive heart failure COPD (chronic obstructive pulmonary disease) Dementia Pacemaker Sleep apnea Supratherapeutic INR Surgical History History of colon surgery History of hernia repair History of permanent cardiac pacemaker placement History of placement of internal cardiac defibrillator Family History Father COPD (chronic obstructive pulmonary disease) Mother Medical history unknown Social History household members: none Smoking Status: Former smoker Discharge Plan Discharge Plan Patient Disposition: SNF Other facility: transfer back to [facility] Discharge orders & Medications Prescriptions: New cefpodoxime 100 mg tablet 100 mg PO BID Qty: 4 0RF Rx Instructions: must administer with a meal/food lorazepam [Ativan] 0.5 mg tablet 0.5 mg PO BID PRN (Reason: anxiety) Qty: 10 0RF furosemide [Lasix] 40 mg tablet 40 mg PO BID Qty: 30 0RF Continued carvedilol 6.25 mg tablet 6.25 mg PO BID polyethylene glycol 3350 [Miralax] 17 gram Powder In Packet 17 g PO DAILY gabapentin 400 mg capsule 400 mg PO TID simvastatin 10 mg tablet 10 mg PO BEDTIME spironolactone 25 mg tablet 12.5 mg PO DAILY tamsulosin 0.4 mg capsule 0.4 mg PO BEDTIME warfarin 2 mg tablet 2 mg PO DAILY amiodarone [Pacerone] 100 mg Tablet 100 mg PO DAILY Adults Multivitamin 18 mg iron-400 mcg-25 mcg Tablet 1 tab PO DAILY magnesium oxide 400 mg tablet 400 mg PO BID Discontinued furosemide 40 mg tablet 80 mg PO TID Follow up/Referrals: Gaurav Borja MD [Primary Care Provider] - Diet/Activity/Treatments Diet: Regular and Low-sodium Liquid consistency: Normal/Thin Food texture: Regular [facility] Rehab type: Physical therapy and Occupational therapy Discharge Data Primary Care Provider: Gaurav Borja
--- NOTE | 2022-05-14 14:59 | CM.DPNOTE ---
Discharge Planning Note: [facility] can accept today at 1530. Wheelchair transport. Will require a rachel lift to the wheelchair. [employer] and [employer] are preparing. Paperwork being completed and sent to Kelsie at [facility]. Gaby Anaya RN/DCP
[2022-05-14] MEDS: POTASSIUM CHLORIDE 20 MEQ TAB 40 MEQ PO (15:15)
--- NOTE | 2022-05-14 15:55 | PC.NURSE ---
Pt discharged at 1545 to [facility]. Escorted off floor in wheelchair, accompanied by facility designee. IV removed, discharge information and new prescriptions included in discharge packet. All belongings left floor with patient.
== END 2022-05-14 15:59 | DRG 291 ==
LOC: ED 22:11 → AC 23:23
PROVIDERS: Emergency Medicine; Internal Medicine; Admitting Provider Nurse Practitioner Family; Emergency Provider Emergency Medicine; Family Provider Surgery; PCP Internal Medicine; Referring Provider Emergency Medicine; Visit Provider Nurse Practitioner Family
DX: I50.23 Acute on chronic systolic (congestive) heart failure (principal); U07.1 COVID-19; N39.0 Urinary tract infection, site not specified; J96.10 Chronic respiratory failure, unspecified whether with hypoxia or hypercapnia; I48.20 Chronic atrial fibrillation, unspecified; I25.10 Atherosclerotic heart disease of native coronary artery without angina pectoris; R79.1 Abnormal coagulation profile; J44.9 Chronic obstructive pulmonary disease, unspecified; N40.0 Benign prostatic hyperplasia without lower urinary tract symptoms; Z79.01 Long term (current) use of anticoagulants; Z66 Do not resuscitate; Z95.0 Presence of cardiac pacemaker; Z87.891 Personal history of nicotine dependence
CPT/HCPCS: 36415; 51701; 71045; 80048; 80053; 81001; 82550; 83605; 83690; 83735; 83880; 84145; 84484; 85025; 85027; 85610; 85730; 87040; 87077; 87086; 87633; 93005; 96365; 96366; 96367; 96368; 99285; J0696; J1940; J2765

== ENCOUNTER 2022-05-19 09:27 | Observation (INO) | payer MEDICARE, OTHER, SELFPAY ==
[2022-05-13 03:18] VITALS: BMI 37.8
[2022-05-19] VITALS (75 sets, daily range): BP systolic 72–99; BP diastolic 41–70; PULSE 60–66; RESP 10–49; TEMP 32–37.1; O2SAT 85–99; BMI 39.7
--- NOTE | 2022-05-19 09:31 | DI.RAD.S_ITS ---
PROCEDURE: XR CHEST 1V INDICATIONS: hypoxia TECHNIQUE: One view of the chest was acquired. COMPARISON: [facility], CR, XR CHEST 1V, 05/12/2022, 17:24. FINDINGS: Surgical changes and devices: Right-sided single lead cardiac defibrillator noted. Lungs and pleura: Left pleural effusion associated with atelectasis and infiltrate. Diffuse chronic interstitial changes present. Mediastinum: Heart size is enlarged. Mild underlying vascular congestion Bones and chest wall: No suspicious bony lesions. Overlying soft tissues appear unremarkable. IMPRESSION: Small left pleural effusions associated bibasilar atelectasis and or infiltrate. Cardiomegaly and mild vascular congestion Diffuse chronic interstitial changes Approved by: Kael Mann M.D. on 05/19/2022 at 9:27
[2022-05-19] MEDS: SODIUM CHLORIDE 0.9% 1,000 ML 1000 ML IV (09:32)
[2022-05-19] MEDS: SODIUM CHLORIDE 0.9% FLUSH 9 ML, EPINEPHrine 0.1 MG IV (09:35)
--- NOTE | 2022-05-19 09:43 | ED_ITS ---
HPI - SOB/Dyspnea General Chief Complaint: Shortness of Breath/Dyspnea Stated Complaint: acute chf DNR Time Seen by Provider: 05/19/22 09:30 History of Present Illness HPI Narrative: Patient is a 86-year-old male history of coronary artery disease, cardiac arrest atrial fibrillation anticoagulated on warfarin, congestive heart failure, COPD recently admitted to the hospital on May 12 through the for respiratory failure. Pulsed form filled out comfort measures DNR. He was discharged to [facility] where he was found to be hypoxic. He was put on CPAP which seemed to help. EMS did give him 1 nitroglycerin now he is on BiPAP. Blood pressure is low in the 70s. I have called and spoken with daughter. She is on her way. Agree with pulsed form no aggressive measures but agree with continuing BiPAP at this time. Patient is complaining of pain in his leg he seems to be following commands but not able to provide much history. Recent admission is reviewed. EMS reports audible rales and wet sounding lungs initially Related Data Home Medications Medication Instructions Recorded Confirmed amiodarone 100 mg tablet (Pacerone) 100 mg PO DAILY 05/13/22 05/13/22 carvedilol 6.25 mg tablet 6.25 mg PO BID 05/13/22 05/13/22 gabapentin 400 mg capsule 400 mg PO TID 05/13/22 05/13/22 magnesium oxide 400 mg PO BID 05/13/22 05/13/22 multivit with minerals-iron 18 1 tab PO DAILY 05/13/22 05/13/22 mg-folic ac 400 mcg-vit K 25 mcg tablet (Adults Multivitamin) polyethylene glycol 3350 17 gram 17 g PO DAILY 05/13/22 05/13/22 oral powder packet (Miralax) simvastatin 10 mg tablet 10 mg PO BEDTIME 05/13/22 05/13/22 spironolactone 25 mg tablet 12.5 mg PO DAILY 05/13/22 05/13/22 tamsulosin 0.4 mg capsule 0.4 mg PO BEDTIME 05/13/22 05/13/22 warfarin 2 mg tablet 2 mg PO DAILY 05/13/22 05/13/22 Previous Rx's Medication Instructions Recorded cefpodoxime 100 mg tablet 100 mg PO BID #4 tabs 05/14/22 furosemide 40 mg tablet (Lasix) 40 mg PO BID #30 tabs 05/14/22 lorazepam 0.5 mg tablet (Ativan) 0.5 mg PO BID PRN anxiety #10 tabs 05/14/22 Allergies Allergy/AdvReac Type Severity Reaction Status Date / Time No Known Drug Allergies Allergy Verified 05/19/22 10:29 Review of Systems Review of Systems ROS Unobtainable: All systems reviewed & are unremarkable except as noted in HPI and below Patient History Medical History Acute on chronic systolic (congestive) heart failure Atrial fibrillation BPH (benign prostatic hyperplasia) Chronic obstructive pulmonary disease with acute respiratory failure Congestive heart failure COPD (chronic obstructive pulmonary disease) Dementia Pacemaker Sleep apnea Supratherapeutic INR Surgical History History of colon surgery History of hernia repair History of permanent cardiac pacemaker placement History of placement of internal cardiac defibrillator Family History Father COPD (chronic obstructive pulmonary disease) Mother Medical history unknown Social History household members: none Smoking Status: Former smoker alcohol intake: current Smoking Status: Former smoker tobacco type: cigarettes alcohol intake frequency: 0-2 drinks per day Substance Use Type: does not use Exam Initial Vital Signs Initial Vital Signs: Vital Signs Temperature 98.1 F 05/19/22 09:30 Pulse Rate 66 05/19/22 09:30 Respiratory Rate 35 H 05/19/22 09:30 Blood Pressure 77/50 L 05/19/22 09:30 Pulse Oximetry 87 L 05/19/22 09:30 Oxygen Delivery Method 05/19/22 09:30 GENERAL: Alert 86-year-old female on BiPAP HEENT: Head atraumatic,EOMI, pupils reactive, face symmetric, [moist] mucous membranes CARDIOVASCULAR: Regular rate and rhythm without murmurs, rubs or gallops. RESPIRATORY: Decreased breath sounds bilaterally ABDOMEN: Soft, nontender. Normoactive bowel sounds all 4 quadrants. No guarding or rebound. EXTREMITIES: Normal range of motion, no clubbing or edema. Neurovascularly intact NEUROLOGICAL: Moving all extremities SKIN: Warm, dry, no laceration, no petechiae, no rashes or lesions. Chronic venous stasis lower extremities Course Orders Ordered: ED Orders 05/19/22 10:20 Covid-19 + FLU A/B + RSV - PCR Stat 05/19/22 11:26 Comprehensive Metabolic Panel Stat Lipase Stat NT-proBNP (BNP-Adult 18+) Stat Troponin & CK Cardiac Panel Stat 05/19/22 11:35 Procalcitonin Stat Prothrombin Time INR Stat 05/19/22 11:38 Lactate (Lactic Acid) Stat Morphine Sulfate (Morphine 2 Mg/Ml Inj) 1 mg IV Q1HR PRN PRN Reason: resp distress or pain Discontinued Medications Sodium Chloride 9 ml/ (Epinephrine HCl 0.1 mg) 0 ml IV NOW ONE Stop: 05/19/22 10:46 Last Admin: 05/19/22 09:35 Dose: 1 ml Documented By: MARTY Fentanyl (Fentanyl 100 Mcg/2 Ml Inj) 50 mcg IV Q1H PRN PRN Reason: Pain, Severe (7-10) Last Admin: 05/19/22 15:40 Dose: 50 mcg Documented By: Admin: 05/19/22 13:11 Dose: 50 mcg Documented By: Admin: 05/19/22 10:59 Dose: 50 mcg Documented By: Admin: 05/19/22 09:52 Dose: 50 mcg Documented By: MARTY Fentanyl (Fentanyl 100 Mcg/2 Ml Inj) 50 mcg IV NOW ONE Stop: 05/19/22 11:42 Last Admin: 05/19/22 11:45 Dose: 50 mcg Documented By: MARTY Sodium Chloride (Normal Saline 0.9%) 1,000 mls @ 1,000 mls/hr IV BOLUS ONE Stop: 05/19/22 11:42 Last Infusion: 05/19/22 11:15 Dose: 0 mls/hr Documented By: Admin: 05/19/22 09:32 Dose: 1,000 mls/hr Documented By: MARTY Sodium Chloride (Normal Saline 0.9%) 1,000 mls @ 125 mls/hr IV BOLUS ONE Stop: 05/19/22 19:40 Last Infusion: 05/19/22 15:45 Dose: 0 mls/hr Documented By: Admin: 05/19/22 11:46 Dose: 125 mls/hr Documented By: MARTY Lorazepam (Lorazepam 2 Mg/Ml Inj) 0.5 mg IV NOW ONE Stop: 05/19/22 11:40 Last Admin: 05/19/22 13:12 Dose: 0.5 mg Documented By: MARTY Lorazepam (Lorazepam 2 Mg/Ml Inj) 0.5 mg IV NOW ONE Stop: 05/19/22 15:17 Last Admin: 05/19/22 15:32 Dose: 0.5 mg Documented By: MARTY Vital Signs Vital signs: Vital Signs - 8 hr 05/19/22 11:18 05/19/22 11:20 05/19/22 11:21 Temperature 98.4 F 98.4 F 98.4 F Pulse Rate 60 60 60 Respiratory Rate 44 H 19 23 Blood Pressure Pulse Oximetry 97 98 98 Oxygen Delivery Method Oxygen Flow Rate 05/19/22 11:21 05/19/22 11:22 05/19/22 11:24 Temperature 98.2 F 98.2 F Pulse Rate 60 60 Respiratory Rate 31 H 33 H Blood Pressure 88/53 L Pulse Oximetry 97 96 Oxygen Delivery Method Nasal Cannula Oxygen Flow Rate 05/19/22 11:25 05/19/22 11:25 05/19/22 11:26 Temperature 98.2 F 98.2 F Pulse Rate 60 60 Respiratory Rate 40 H 36 H Blood Pressure 80/52 L Pulse Oximetry 96 93 Oxygen Delivery Method Oxygen Flow Rate 05/19/22 11:28 05/19/22 11:30 05/19/22 11:31 Temperature 98.2 F 98.2 F Pulse Rate 60 63 Respiratory Rate 39 H 26 H Blood Pressure 86/50 L Pulse Oximetry 92 92 Oxygen Delivery Method Oxygen Flow Rate 05/19/22 11:31 05/19/22 11:32 05/19/22 11:34 Temperature 98.2 F 98.2 F 98.2 F Pulse Rate 61 61 60 Respiratory Rate 23 25 H 30 H Blood Pressure Pulse Oximetry 93 92 92 Oxygen Delivery Method Oxygen Flow Rate 05/19/22 11:36 05/19/22 11:36 05/19/22 11:38 Temperature 98.2 F 98.2 F Pulse Rate 62 62 Respiratory Rate 33 H 30 H Blood Pressure 87/51 L Pulse Oximetry 93 93 Oxygen Delivery Method Oxygen Flow Rate 05/19/22 11:40 05/19/22 11:40 05/19/22 11:42 Temperature 98.2 F 98.1 F Pulse Rate 60 60 Respiratory Rate 23 46 H Blood Pressure 85/50 L Pulse Oximetry 93 90 L Oxygen Delivery Method Oxygen Flow Rate 05/19/22 11:44 05/19/22 11:45 05/19/22 11:46 Temperature 98.1 F 98.1 F Pulse Rate 60 60 Respiratory Rate 47 H 49 H Blood Pressure 97/52 L Pulse Oximetry 87 L 87 L Oxygen Delivery Method Nasal Cannula Oxygen Flow Rate 6 05/19/22 11:46 05/19/22 11:50 05/19/22 11:50 Temperature 98.1 F 98.1 F Pulse Rate 60 60 Respiratory Rate 45 H 42 H Blood Pressure 89/50 L Pulse Oximetry 85 L 87 L Oxygen Delivery Method Nasal Cannula Oxygen Flow Rate 6 05/19/22 12:00 05/19/22 12:00 05/19/22 12:15 Temperature 98.1 F 97.9 F Pulse Rate 60 60 Respiratory Rate 49 H 37 H Blood Pressure 99/56 L Pulse Oximetry 87 L 91 Oxygen Delivery Method Oxygen Flow Rate 05/19/22 12:30 05/19/22 12:30 05/19/22 12:45 Temperature 97.7 F 97.5 F L Pulse Rate 60 60 Respiratory Rate 36 H 34 H Blood Pressure 90/55 L Pulse Oximetry 93 94 Oxygen Delivery Method Oxygen Flow Rate 05/19/22 13:00 05/19/22 13:00 05/19/22 13:15 Temperature 97.5 F L Pulse Rate 60 60 Respiratory Rate 47 H 49 H Blood Pressure 91/51 L Pulse Oximetry 94 88 L Oxygen Delivery Method Oxygen Flow Rate 05/19/22 13:30 Temperature Pulse Rate 60 Respiratory Rate 43 H Blood Pressure Pulse Oximetry 90 L Oxygen Delivery Method Oxygen Flow Rate MDM - SOB/Dyspnea Lab Data Result diagrams: 05/19/22 09:50 05/19/22 11:26 Labs: Lab Results 05/19/22 05/19/22 05/19/22 Range/Units 09:50 09:58 10:15 WBC 9.5 (4.5-11.0) X10^3/uL RBC 4.38 L (4.5-5.9) X10^6/uL Hgb 14.1 (13.5-17.5) g/dL Hct 41.8 (41-53) % MCV 95.4 (80-100) fL MCH 32.2 (26-34) PG MCHC 33.8 (30-36) % RDW 14.8 (11.6-14.8) % Plt Count 90 L (150-400) X10^3/uL Neut % (Auto) 82.2 H (50-75) % Lymph % (Auto) 8.6 L (25-40) % [place] % (Auto) 7.8 (3-14) % Eos % (Auto) 0.9 L (2-4) % Baso % (Auto) 0.5 (0-2) % Neut # (Auto) 7800 H (9301-1514) /uL Lymph # (Auto) 800 L (3926-8038) /uL [place] # (Auto) 700 (0-900) /uL Eos # (Auto) 100 (0-450) /uL Baso # (Auto) 0 (0-100) /uL PT (10.1-12.7) SECONDS INR (0.9-1.3) APTT ABG pH 7.51 H (7.35-7.45) ABG pCO2 42.5 (35-45) mmHg ABG pO2 57 L (80-100) mmHg ABG HCO3 34 H (22-26) mmol/L ABG Total CO2 35 H (21-31) mmol/L ABG O2 Saturation 92 L (95-100) % ABG Base Excess 10.0 H (-2-2) mmol/L FiO2 60 Sodium (137-145) mmol/L Potassium (3.4-5.1) mmol/L Chloride (98-107) mmol/L Carbon Dioxide (22-32) mmol/L BUN (9-20) mg/dL Creatinine (0.66-1.25) mg/dL Estimated GFR (>60) mL/min BUN/Creatinine Ratio (6-22) Glucose (80-110) mg/dL Lactate (0.7-2.1) mmol/L Calcium (8.4-10.2) mg/dL Total Bilirubin (0.2-1.3) mg/dL AST (17-59) IU/L ALT (<50) IU/L Alkaline Phosphatase (38-126) U/L Total Creatine Kinase (55-170) U/L CK-MB (CK-2) CK-MB (CK-2) Rel Index Troponin I (0.01-0.034) ng/mL NT-Pro-B Natriuret Pep (<450) pg/mL Total Protein (6.3-8.2) g/dL Albumin (3.5-5.0) g/dL Globulin (1.7-4.1) g/dL Albumin/Globulin Ratio (1.0-2.8) Lipase (23-300) U/L Procalcitonin (<0.5) ng/mL Urine Color Yellow Urine Appearance Clear Urine pH 5.0 (4.5-8.0) Ur Specific [place] 1.010 (1.000-1.035) Urine Protein Negative (Negative) Urine Glucose (UA) Negative (Negative) g/dL Urine Ketones Negative (NEGATIVE) Urine Occult Blood 3+ H (Negative) Urine Nitrate Negative (Negative) Urine Bilirubin Negative (NEGATIVE) Urine Urobilinogen 0.2 (0.2) E.U./dL Ur Leukocyte Esterase Negative (NEGATIVE) Urine RBC 10-30/hpf H (0-5/HPF) Urine WBC 5-10/hpf H (0-5/HPF) Ur Squamous Epith Cells 5-10 /hpf H (0-5/HPF) Amorphous Sediment 2+ Urine Bacteria Few (2-10) H (None) Ur Culture Indicated? Specimen cultured SARS-CoV-2 (PCR) (Negative) Influenza A (RT-PCR) (NEGATIVE) Influenza B (RT-PCR) (NEGATIVE) RSV (PCR) (Negative) 05/19/22 05/19/22 05/19/22 Range/Units 10:20 11:26 11:35 WBC (4.5-11.0) X10^3/uL RBC (4.5-5.9) X10^6/uL Hgb (13.5-17.5) g/dL Hct (41-53) % MCV (80-100) fL MCH (26-34) PG MCHC (30-36) % RDW (11.6-14.8) % Plt Count (150-400) X10^3/uL Neut % (Auto) (50-75) % Lymph % (Auto) (25-40) % [place] % (Auto) (3-14) % Eos % (Auto) (2-4) % Baso % (Auto) (0-2) % Neut # (Auto) (8229-7773) /uL Lymph # (Auto) (1497-5908) /uL [place] # (Auto) (0-900) /uL Eos # (Auto) (0-450) /uL Baso # (Auto) (0-100) /uL PT 58.3 H D (10.1-12.7) SECONDS INR 5.0 H* (0.9-1.3) APTT Cancelled ABG pH (7.35-7.45) ABG pCO2 (35-45) mmHg ABG pO2 (80-100) mmHg ABG HCO3 (22-26) mmol/L ABG Total CO2 (21-31) mmol/L ABG O2 Saturation (95-100) % ABG Base Excess (-2-2) mmol/L FiO2 Sodium 135 L (137-145) mmol/L Potassium 4.1 (3.4-5.1) mmol/L Chloride 99 (98-107) mmol/L Carbon Dioxide 32 (22-32) mmol/L BUN 44 H (9-20) mg/dL Creatinine 1.64 H (0.66-1.25) mg/dL Estimated GFR 40 L (>60) mL/min BUN/Creatinine Ratio 26.8 H (6-22) Glucose 91 (80-110) mg/dL Lactate (0.7-2.1) mmol/L Calcium 7.0 L (8.4-10.2) mg/dL Total Bilirubin 1.4 H (0.2-1.3) mg/dL AST 61 H (17-59) IU/L ALT 37 (<50) IU/L Alkaline Phosphatase 212 H D (38-126) U/L Total Creatine Kinase 35 L (55-170) U/L CK-MB (CK-2) TNP CK-MB (CK-2) Rel Index TNP Troponin I 0.057 H (0.01-0.034) ng/mL NT-Pro-B Natriuret Pep 2130 H (<450) pg/mL Total Protein 6.0 L (6.3-8.2) g/dL Albumin 2.5 L (3.5-5.0) g/dL Globulin 3.5 (1.7-4.1) g/dL Albumin/Globulin Ratio 0.7 L (1.0-2.8) Lipase 44 (23-300) U/L Procalcitonin (<0.5) ng/mL Urine Color Urine Appearance Urine pH (4.5-8.0) Ur Specific [place] (1.000-1.035) Urine Protein (Negative) Urine Glucose (UA) (Negative) g/dL Urine Ketones (NEGATIVE) Urine Occult Blood (Negative) Urine Nitrate (Negative) Urine Bilirubin (NEGATIVE) Urine Urobilinogen (0.2) E.U./dL Ur Leukocyte Esterase (NEGATIVE) Urine RBC (0-5/HPF) Urine WBC (0-5/HPF) Ur Squamous Epith Cells (0-5/HPF) Amorphous Sediment Urine Bacteria (None) Ur Culture Indicated? SARS-CoV-2 (PCR) Positive H (Negative) Influenza A (RT-PCR) Flu a negative (NEGATIVE) Influenza B (RT-PCR) Flu b negative (NEGATIVE) RSV (PCR) Negative (Negative) 05/19/22 05/19/22 Range/Units 11:35 11:38 WBC (4.5-11.0) X10^3/uL RBC (4.5-5.9) X10^6/uL Hgb (13.5-17.5) g/dL Hct (41-53) % MCV (80-100) fL MCH (26-34) PG MCHC (30-36) % RDW (11.6-14.8) % Plt Count (150-400) X10^3/uL Neut % (Auto) (50-75) % Lymph % (Auto) (25-40) % [place] % (Auto) (3-14) % Eos % (Auto) (2-4) % Baso % (Auto) (0-2) % Neut # (Auto) (8348-9868) /uL Lymph # (Auto) (6908-2500) /uL [place] # (Auto) (0-900) /uL Eos # (Auto) (0-450) /uL Baso # (Auto) (0-100) /uL PT (10.1-12.7) SECONDS INR (0.9-1.3) APTT ABG pH (7.35-7.45) ABG pCO2 (35-45) mmHg ABG pO2 (80-100) mmHg ABG HCO3 (22-26) mmol/L ABG Total CO2 (21-31) mmol/L ABG O2 Saturation (95-100) % ABG Base Excess (-2-2) mmol/L FiO2 Sodium (137-145) mmol/L Potassium (3.4-5.1) mmol/L Chloride (98-107) mmol/L Carbon Dioxide (22-32) mmol/L BUN (9-20) mg/dL Creatinine (0.66-1.25) mg/dL Estimated GFR (>60) mL/min BUN/Creatinine Ratio (6-22) Glucose (80-110) mg/dL Lactate 1.0 (0.7-2.1) mmol/L Calcium (8.4-10.2) mg/dL Total Bilirubin (0.2-1.3) mg/dL AST (17-59) IU/L ALT (<50) IU/L Alkaline Phosphatase (38-126) U/L Total Creatine Kinase (55-170) U/L CK-MB (CK-2) CK-MB (CK-2) Rel Index Troponin I (0.01-0.034) ng/mL NT-Pro-B Natriuret Pep (<450) pg/mL Total Protein (6.3-8.2) g/dL Albumin (3.5-5.0) g/dL Globulin (1.7-4.1) g/dL Albumin/Globulin Ratio (1.0-2.8) Lipase (23-300) U/L Procalcitonin 0.27 (<0.5) ng/mL Urine Color Urine Appearance Urine pH (4.5-8.0) Ur Specific [place] (1.000-1.035) Urine Protein (Negative) Urine Glucose (UA) (Negative) g/dL Urine Ketones (NEGATIVE) Urine Occult Blood (Negative) Urine Nitrate (Negative) Urine Bilirubin (NEGATIVE) Urine Urobilinogen (0.2) E.U./dL Ur Leukocyte Esterase (NEGATIVE) Urine RBC (0-5/HPF) Urine WBC (0-5/HPF) Ur Squamous Epith Cells (0-5/HPF) Amorphous Sediment Urine Bacteria (None) Ur Culture Indicated? SARS-CoV-2 (PCR) (Negative) Influenza A (RT-PCR) (NEGATIVE) Influenza B (RT-PCR) (NEGATIVE) RSV (PCR) (Negative) Imaging Data Chest x-ray: Radiologist's Impression: Signed Patient: Talha López MR#: [id number] : 1935 Acct:[id number] Age/Sex: 86 / M Date of Service: 05/19/22 Loc: ED Accession Number: [id number] ?? Procedure: XR chest 1V Ordering Provider: Simin Ventura D.O. PROCEDURE:? XR CHEST 1V ? INDICATIONS:? hypoxia ? TECHNIQUE:? One view of the chest was acquired.? ? COMPARISON:? [facility], CR, XR CHEST 1V, 05/12/2022, 17:24. ? FINDINGS:? ? Surgical changes and devices:? Right-sided single lead cardiac defibrillator noted. ? Lungs and pleura:? Left pleural effusion associated with atelectasis and infiltrate.? Diffuse chronic interstitial changes present. ? Mediastinum:? Heart size is enlarged.? Mild underlying vascular congestion ? Bones and chest wall:? No suspicious bony lesions.? Overlying soft tissues appear unremarkable.? ? IMPRESSION:? ? Small left pleural effusions associated bibasilar atelectasis and or infiltrate. Cardiomegaly and mild vascular congestion Diffuse chronic interstitial changes ? ? ? Approved by: Kael Mann M.D. on 05/19/2022 at 9:27? ECG Data Interpretation: Paced rhythm rate [address] changes MDM Narrative Medical decision making narrative: Patient presents today with increasing shortness of breath history of COPD CHF. Recently admitted with CHF exacerbation discharge to [facility] presenting today again with hypoxia. Pulse form is reviewed comfort measures and DNR. Family at bedside we have talked about options currently on BiPAP at this time they agree to take him off BiPAP. He does remain hypotensive. He was given 1 dose of push dose epinephrine for the hypotension before family arrived. Other vaso pressors were not started. Patient was a very difficult IV start and difficult to get blood work. They did agree to blood work. Blood work surprisingly is not significantly abnormal mild increasing creatinine of 1.64, mild elevation of BNP of 2100 previously 1500. Family at bedside he has spoken to all the family members on the phone son is on the plane should arrived this evening. Patient and family agree for pure comfort measures only and hospice care. He complains of pain all over his body he is given Ativan and fentanyl as needed. The patient has actually become less responsive since BiPAP has been taken off he remains hypotensive. Dr. Her rash updated on patient's symptoms test results agrees with admitting for end of life. Initially discussed possible return to [facility] however due to multiple IV medications agrees with admission Discharge Plan Departure Patient Disposition: Admitted as Observation Clinical Impression: Congestive heart failure, End of life care Admit Date/Time: 05/19/22 13:39 Admit Provider: Rene Gardner
[2022-05-19] MEDS: fentaNYL 100 MCG/2 ML INJ 50 MCG IV ×5 (09:52→15:40)
[2022-05-19 10:09] LABS: HCO3 ABG 34 mmol/L (22-26); PCO2 ABG 42.5 mmHg (35-45); PO2 ABG 57 mmHg (80-100); TCO2 ABG 35 mmol/L (21-31); pH ABG 7.51 (7.35-7.45)
[2022-05-19 10:10] LABS: Fractionated Inspired Oxygen 60; Oxygen Saturation ABG 92 % (95-100)
[2022-05-19 10:27] LABS: Add Manual Diff / Slide Review NO; Basophils Absolute Auto 0 /uL (0-100); Basophils Percent Auto 0.5 % (0-2); Eosinophils Absolute Auto 100 /uL (0-450); Eosinophils Percent Auto 0.9 % (2-4); Hematocrit 41.8 % (41-53); Hemoglobin 14.1 g/dL (13.5-17.5); Lymphocytes Absolute Auto 800 /uL (1100-4500); Lymphocytes Percent Auto 8.6 % (25-40); Mean Corpuscular HGB Conc 33.8 % (30-36); Mean Corpuscular Hemoglobin 32.2 PG (26-34); Mean Corpuscular Volume 95.4 fL (80-100); Monocytes Absolute Auto 700 /uL (0-900); Monocytes Percent Auto 7.8 % (3-14); Neutrophils Absolute Auto 7800 /uL (1500-7000); Neutrophils Percent Auto 82.2 % (50-75); Platelet Count 90 X10^3/uL (150-400); Red Blood Cell Count 4.38 X10^6/uL (4.5-5.9); Red Cell Distribution Width 14.8 % (11.6-14.8); White Blood Cell Count 9.5 X10^3/uL (4.5-11.0)
[2022-05-19 11:18] LABS: Appearance Urine UA CLEAR; Bilirubin Urine UA NEGATIVE (NEGATIVE); Color Urine UA YELLOW; Glucose Urine UA NEGATIVE (Negative); Ketones Urine UA NEGATIVE (NEGATIVE); Leukocyte Esterase Urine UA NEGATIVE (NEGATIVE); Nitrite Urine UA NEGATIVE (Negative); Occult Blood Urine UA 3+ (Negative); Protein Urine UA NEGATIVE (Negative); Urobilinogen Urine UA 0.2 E.U./dL (0.2)
[2022-05-19 11:19] LABS: Influenza A - CEPHEID Flu A NEGATIVE (NEGATIVE); Influenza B - CEPHEID Flu B NEGATIVE (NEGATIVE); Respiratory Syncytial Virus Negative (Negative)
[2022-05-19 11:29] LABS: COVID-19 CEPHEID 4-PLEX PCR POSITIVE (Negative)
[2022-05-19 11:38] LABS: Amorphous Sediment Urine 2+; Bacteria Urine Few (2-10); Culture Indicated Urine Specimen Cultured; RBC Urine 10-30/HPF (0-5/HPF); Squamous Epithelial Cell Urine 5-10 /HPF (0-5/HPF); WBC Urine 5-10/HPF (0-5/HPF)
[2022-05-19] MEDS: SODIUM CHLORIDE 0.9% 1,000 ML 125 ML IV (11:46)
[2022-05-19 12:13] LABS: Alanine Aminotransferase 37 IU/L (<50); Albumin 2.5 g/dL (3.5-5.0); Albumin Globulin Ratio 0.7 (1.0-2.8); Alkaline Phosphatase 212 U/L (38-126); Aspartate Aminotransferase 61 IU/L (17-59); BUN Creatinine Ratio 26.8 (6-22); Bilirubin Total 1.4 mg/dL (0.2-1.3); Blood Urea Nitrogen 44 mg/dL (9-20); Carbon Dioxide 32 mmol/L (22-32); Chloride 99 mmol/L (98-107); Creatine Kinase 35 U/L (55-170); Estimated Glomerular Filt Rate 40 mL/min (>60); Globulin 3.5 g/dL (1.7-4.1); Glucose 91 mg/dL (80-110); Lipase 44 U/L (23-300); Potassium 4.1 mmol/L (3.4-5.1); Sodium 135 mmol/L (137-145)
[2022-05-19 12:14] LABS: HEMOLYSIS 90 (0-50)
[2022-05-19 12:26] LABS: NT-proBNP (BNP-Adult 18+) 2130 pg/mL (<450); Troponin I 0.057 ng/mL (0.01-0.034)
[2022-05-19 12:42] LABS: Procalcitonin 0.27 ng/mL (<0.5)
[2022-05-19] MEDS: LORazepam 2 MG/ML INJ 0.5 MG IV ×2 (13:12→15:32)
--- NOTE | 2022-05-19 16:32 | PM.HP.1 ---
History of Present Illness History of Present Illness Date Patient Seen: 05/19/22 Time Patient Seen: 16:15 Chief complaint: acute chf DNR Narrative: Patient is 86-year-old male with history of systolic heart failure, AFib, COPD, dementia, pacemaker, recent COVID, recent admission for heart failure, who was sent to ED from nursing facility due to respiratory distress. He was noted to be quite tachypneic, hypoxic and hypotensive in the ED. family elected to have him admitted for comfort care as he was too unstable to return to nursing facility. At the time he came to the floor patient was unresponsive with blood pressure of 75 systolic and with labored rapid breathing. Patient History Medical History Acute on chronic systolic (congestive) heart failure Atrial fibrillation BPH (benign prostatic hyperplasia) Chronic obstructive pulmonary disease with acute respiratory failure Congestive heart failure COPD (chronic obstructive pulmonary disease) Dementia Pacemaker Sleep apnea Supratherapeutic INR Surgical History History of colon surgery History of hernia repair History of permanent cardiac pacemaker placement History of placement of internal cardiac defibrillator Family & Social History Family History Father COPD (chronic obstructive pulmonary disease) Mother Medical history unknown Social History: household members none Tobacco & Substance use: Smoking Status Former smoker alcohol intake frequency 0-2 drinks per day Substance Use Type does not use Meds Home Medications and Allergies Home Medications Medication Instructions Recorded Confirmed Type amiodarone 100 mg tablet (Pacerone) 100 mg PO DAILY 05/13/22 05/13/22 History carvedilol 6.25 mg tablet 6.25 mg PO BID 05/13/22 05/13/22 History gabapentin 400 mg capsule 400 mg PO TID 05/13/22 05/13/22 History magnesium oxide 400 mg PO BID 05/13/22 05/13/22 History multivit with minerals-iron 18 1 tab PO DAILY 05/13/22 05/13/22 History mg-folic ac 400 mcg-vit K 25 mcg tablet (Adults Multivitamin) polyethylene glycol 3350 17 gram 17 g PO DAILY 05/13/22 05/13/22 History oral powder packet (Miralax) simvastatin 10 mg tablet 10 mg PO BEDTIME 05/13/22 05/13/22 History spironolactone 25 mg tablet 12.5 mg PO DAILY 05/13/22 05/13/22 History tamsulosin 0.4 mg capsule 0.4 mg PO BEDTIME 05/13/22 05/13/22 History warfarin 2 mg tablet 2 mg PO DAILY 05/13/22 05/13/22 History cefpodoxime 100 mg tablet 100 mg PO BID #4 tabs 05/14/22 Rx furosemide 40 mg tablet (Lasix) 40 mg PO BID #30 tabs 05/14/22 Rx lorazepam 0.5 mg tablet (Ativan) 0.5 mg PO BID PRN anxiety #10 tabs 05/14/22 Rx Allergies Allergy/AdvReac Type Severity Reaction Status Date / Time No Known Drug Allergies Allergy Verified 05/19/22 10:29 Exam Vital Signs (past 8 hours): - 05/19/22 09:37 05/19/22 09:30 05/19/22 10:16 Temperature 98.1 F Pulse Rate 66 Respiratory Rate 35 H Blood Pressure 76/47 L 77/50 L 88/52 L Pulse Oximetry 87 L Oxygen Delivery Method BiPAP Oxygen Flow Rate Fraction of Inspired Oxygen 60 05/19/22 10:16 05/19/22 10:18 05/19/22 10:20 Temperature Pulse Rate 60 60 Respiratory Rate 31 H 34 H Blood Pressure 80/52 L Pulse Oximetry 88 L 94 Oxygen Delivery Method BiPAP Oxygen Flow Rate Fraction of Inspired Oxygen 05/19/22 10:20 05/19/22 10:22 05/19/22 10:24 Temperature 98.4 F Pulse Rate 60 60 60 Respiratory Rate 31 H 23 32 H Blood Pressure Pulse Oximetry 89 L 99 99 Oxygen Delivery Method Oxygen Flow Rate Fraction of Inspired Oxygen 05/19/22 10:25 05/19/22 10:25 05/19/22 10:26 Temperature 98.4 F 98.4 F Pulse Rate 60 60 Respiratory Rate 34 H 30 H Blood Pressure 84/52 L Pulse Oximetry 98 98 Oxygen Delivery Method Oxygen Flow Rate Fraction of Inspired Oxygen 05/19/22 10:28 05/19/22 10:30 05/19/22 10:30 Temperature 98.4 F 98.6 F Pulse Rate 60 60 Respiratory Rate 26 H 22 Blood Pressure 84/50 L Pulse Oximetry 97 96 Oxygen Delivery Method Oxygen Flow Rate Fraction of Inspired Oxygen 05/19/22 10:32 05/19/22 10:34 05/19/22 10:35 Temperature 98.6 F 98.6 F Pulse Rate 60 60 Respiratory Rate 30 H 31 H Blood Pressure 82/50 L Pulse Oximetry 97 97 Oxygen Delivery Method Oxygen Flow Rate Fraction of Inspired Oxygen 05/19/22 10:35 05/19/22 10:36 05/19/22 09:30 Temperature 98.6 F 98.6 F Pulse Rate 60 60 66 Respiratory Rate 35 H 39 H 43 H Blood Pressure 77/50 L Pulse Oximetry 96 96 Oxygen Delivery Method BiPAP Oxygen Flow Rate Fraction of Inspired Oxygen 05/19/22 09:45 05/19/22 09:35 05/19/22 10:38 Temperature 98.6 F Pulse Rate 60 60 Respiratory Rate 39 H 39 H 25 H Blood Pressure 87/54 L 72/46 L Pulse Oximetry 97 Oxygen Delivery Method Oxygen Flow Rate Fraction of Inspired Oxygen 05/19/22 10:40 05/19/22 10:40 05/19/22 10:42 Temperature 98.6 F 98.6 F Pulse Rate 60 60 Respiratory Rate 21 18 Blood Pressure 77/44 L Pulse Oximetry 97 97 Oxygen Delivery Method Oxygen Flow Rate Fraction of Inspired Oxygen 05/19/22 10:44 05/19/22 10:45 05/19/22 10:45 Temperature 98.8 F 98.8 F Pulse Rate 60 60 Respiratory Rate 22 25 H Blood Pressure 72/43 L Pulse Oximetry 99 99 Oxygen Delivery Method Oxygen Flow Rate Fraction of Inspired Oxygen 05/19/22 10:46 05/19/22 10:48 05/19/22 10:50 Temperature 98.6 F 98.6 F Pulse Rate 61 61 Respiratory Rate 26 H 24 Blood Pressure 75/51 L Pulse Oximetry 97 97 Oxygen Delivery Method Oxygen Flow Rate Fraction of Inspired Oxygen 05/19/22 10:50 05/19/22 10:52 05/19/22 10:54 Temperature 98.6 F 98.6 F 98.6 F Pulse Rate 60 61 60 Respiratory Rate 25 H 21 33 H Blood Pressure Pulse Oximetry 98 99 98 Oxygen Delivery Method Oxygen Flow Rate Fraction of Inspired Oxygen 05/19/22 10:55 05/19/22 10:55 05/19/22 10:56 Temperature 98.6 F 98.6 F Pulse Rate 60 62 Respiratory Rate 31 H 29 H Blood Pressure 82/50 L Pulse Oximetry 98 96 Oxygen Delivery Method Oxygen Flow Rate Fraction of Inspired Oxygen 05/19/22 10:58 05/19/22 11:00 05/19/22 11:00 Temperature 98.6 F 98.6 F Pulse Rate 61 60 Respiratory Rate 17 25 H Blood Pressure 83/50 L Pulse Oximetry 97 98 Oxygen Delivery Method Oxygen Flow Rate Fraction of Inspired Oxygen 05/19/22 11:02 05/19/22 11:04 05/19/22 11:05 Temperature 98.6 F 98.4 F Pulse Rate 60 61 Respiratory Rate 21 22 Blood Pressure 85/51 L Pulse Oximetry 97 96 Oxygen Delivery Method Oxygen Flow Rate Fraction of Inspired Oxygen 05/19/22 11:05 05/19/22 11:06 05/19/22 11:08 Temperature 98.4 F 98.4 F 98.4 F Pulse Rate 61 61 60 Respiratory Rate 20 31 H 28 H Blood Pressure Pulse Oximetry 97 97 96 Oxygen Delivery Method Oxygen Flow Rate Fraction of Inspired Oxygen 05/19/22 11:10 05/19/22 11:10 05/19/22 11:12 Temperature 98.4 F 98.4 F Pulse Rate 60 60 Respiratory Rate 25 H 25 H Blood Pressure 82/47 L Pulse Oximetry 97 98 Oxygen Delivery Method Oxygen Flow Rate Fraction of Inspired Oxygen 05/19/22 11:14 05/19/22 11:16 05/19/22 11:18 Temperature 98.4 F 98.4 F 98.4 F Pulse Rate 60 60 60 Respiratory Rate 26 H 30 H 44 H Blood Pressure Pulse Oximetry 98 98 97 Oxygen Delivery Method Oxygen Flow Rate Fraction of Inspired Oxygen 05/19/22 11:20 05/19/22 11:21 05/19/22 11:21 Temperature 98.4 F 98.4 F Pulse Rate 60 60 Respiratory Rate 19 23 Blood Pressure 88/53 L Pulse Oximetry 98 98 Oxygen Delivery Method Oxygen Flow Rate Fraction of Inspired Oxygen 05/19/22 11:22 05/19/22 11:24 05/19/22 11:25 Temperature 98.2 F 98.2 F Pulse Rate 60 60 Respiratory Rate 31 H 33 H Blood Pressure 80/52 L Pulse Oximetry 97 96 Oxygen Delivery Method Nasal Cannula Oxygen Flow Rate Fraction of Inspired Oxygen 05/19/22 11:25 05/19/22 11:26 05/19/22 11:28 Temperature 98.2 F 98.2 F 98.2 F Pulse Rate 60 60 60 Respiratory Rate 40 H 36 H 39 H Blood Pressure Pulse Oximetry 96 93 92 Oxygen Delivery Method Oxygen Flow Rate Fraction of Inspired Oxygen 05/19/22 11:30 05/19/22 11:31 05/19/22 11:31 Temperature 98.2 F 98.2 F Pulse Rate 63 61 Respiratory Rate 26 H 23 Blood Pressure 86/50 L Pulse Oximetry 92 93 Oxygen Delivery Method Oxygen Flow Rate Fraction of Inspired Oxygen 05/19/22 11:32 05/19/22 11:34 05/19/22 11:36 Temperature 98.2 F 98.2 F Pulse Rate 61 60 Respiratory Rate 25 H 30 H Blood Pressure 87/51 L Pulse Oximetry 92 92 Oxygen Delivery Method Oxygen Flow Rate Fraction of Inspired Oxygen 05/19/22 11:36 05/19/22 11:38 05/19/22 11:40 Temperature 98.2 F 98.2 F Pulse Rate 62 62 Respiratory Rate 33 H 30 H Blood Pressure 85/50 L Pulse Oximetry 93 93 Oxygen Delivery Method Oxygen Flow Rate Fraction of Inspired Oxygen 05/19/22 11:40 05/19/22 11:42 05/19/22 11:44 Temperature 98.2 F 98.1 F 98.1 F Pulse Rate 60 60 60 Respiratory Rate 23 46 H 47 H Blood Pressure Pulse Oximetry 93 90 L 87 L Oxygen Delivery Method Nasal Cannula Oxygen Flow Rate 6 Fraction of Inspired Oxygen 05/19/22 11:45 05/19/22 11:46 05/19/22 11:46 Temperature 98.1 F 98.1 F Pulse Rate 60 60 Respiratory Rate 49 H 45 H Blood Pressure 97/52 L Pulse Oximetry 87 L 85 L Oxygen Delivery Method Oxygen Flow Rate Fraction of Inspired Oxygen 05/19/22 11:50 05/19/22 11:50 05/19/22 12:00 Temperature 98.1 F Pulse Rate 60 Respiratory Rate 42 H Blood Pressure 89/50 L 99/56 L Pulse Oximetry 87 L Oxygen Delivery Method Nasal Cannula Oxygen Flow Rate 6 Fraction of Inspired Oxygen 05/19/22 12:00 05/19/22 12:15 05/19/22 12:30 Temperature 98.1 F 97.9 F Pulse Rate 60 60 Respiratory Rate 49 H 37 H Blood Pressure 90/55 L Pulse Oximetry 87 L 91 Oxygen Delivery Method Oxygen Flow Rate Fraction of Inspired Oxygen 05/19/22 12:30 05/19/22 12:45 05/19/22 13:00 Temperature 97.7 F 97.5 F L Pulse Rate 60 60 Respiratory Rate 36 H 34 H Blood Pressure 91/51 L Pulse Oximetry 93 94 Oxygen Delivery Method Oxygen Flow Rate Fraction of Inspired Oxygen 05/19/22 13:00 05/19/22 13:15 05/19/22 13:30 Temperature 97.5 F L Pulse Rate 60 60 60 Respiratory Rate 47 H 49 H 43 H Blood Pressure Pulse Oximetry 94 88 L 90 L Oxygen Delivery Method Oxygen Flow Rate Fraction of Inspired Oxygen 05/19/22 13:45 05/19/22 14:00 05/19/22 14:15 Temperature Pulse Rate 60 60 60 Respiratory Rate 43 H 44 H 41 H Blood Pressure Pulse Oximetry 89 L 89 L 89 L Oxygen Delivery Method Oxygen Flow Rate Fraction of Inspired Oxygen 05/19/22 14:30 05/19/22 14:45 05/19/22 15:00 Temperature Pulse Rate 60 60 60 Respiratory Rate 40 H 46 H 45 H Blood Pressure Pulse Oximetry 89 L 90 L 90 L Oxygen Delivery Method Nasal Cannula Oxygen Flow Rate 6 Fraction of Inspired Oxygen Fraction of Inspired Oxygen 60 Oxygen Delivery Method Nasal Cannula Oxygen Flow Rate 6 Narrative Exam Narrative: General: Unresponsive male with labored breathing Lungs: Tachypneic, labored, coarse bilateral breath sounds Heart: Pacemaker Extremities: 2+ edema LEs Objective Labs Result Diagrams: 05/19/22 09:50 05/19/22 11:26 Labs: Laboratory Results - last 24 hr 05/19/22 05/19/22 05/19/22 09:50 09:58 10:15 WBC 9.5 RBC 4.38 L Hgb 14.1 Hct 41.8 MCV 95.4 MCH 32.2 MCHC 33.8 RDW 14.8 Plt Count 90 L Neut % (Auto) 82.2 H Lymph % (Auto) 8.6 L [place] % (Auto) 7.8 Eos % (Auto) 0.9 L Baso % (Auto) 0.5 Neut # (Auto) 7800 H Lymph # (Auto) 800 L [place] # (Auto) 700 Eos # (Auto) 100 Baso # (Auto) 0 ABG pH 7.51 H ABG pCO2 42.5 ABG pO2 57 L ABG HCO3 34 H ABG Total CO2 35 H ABG O2 Saturation 92 L ABG Base Excess 10.0 H FiO2 60 Sodium Potassium Chloride Carbon Dioxide BUN Creatinine Estimated GFR BUN/Creatinine Ratio Glucose Lactate Calcium Total Bilirubin AST ALT Alkaline Phosphatase Total Creatine Kinase CK-MB (CK-2) CK-MB (CK-2) Rel Index Troponin I NT-Pro-B Natriuret Pep Total Protein Albumin Globulin Albumin/Globulin Ratio Lipase Procalcitonin Urine Color Yellow Urine Appearance Clear Urine pH 5.0 Ur Specific [place] 1.010 Urine Protein Negative Urine Glucose (UA) Negative Urine Ketones Negative Urine Occult Blood 3+ H Urine Nitrate Negative Urine Bilirubin Negative Urine Urobilinogen 0.2 Ur Leukocyte Esterase Negative Urine RBC 10-30/hpf H Urine WBC 5-10/hpf H Ur Squamous Epith Cells 5-10 /hpf H Amorphous Sediment 2+ Urine Bacteria Few (2-10) H Ur Culture Indicated? Specimen cultured SARS-CoV-2 (PCR) Influenza A (RT-PCR) Influenza B (RT-PCR) RSV (PCR) 05/19/22 05/19/22 05/19/22 10:20 11:26 11:35 WBC RBC Hgb Hct MCV MCH MCHC RDW Plt Count Neut % (Auto) Lymph % (Auto) [place] % (Auto) Eos % (Auto) Baso % (Auto) Neut # (Auto) Lymph # (Auto) [place] # (Auto) Eos # (Auto) Baso # (Auto) ABG pH ABG pCO2 ABG pO2 ABG HCO3 ABG Total CO2 ABG O2 Saturation ABG Base Excess FiO2 Sodium 135 L Potassium 4.1 Chloride 99 Carbon Dioxide 32 BUN 44 H Creatinine 1.64 H Estimated GFR 40 L BUN/Creatinine Ratio 26.8 H Glucose 91 Lactate Calcium 7.0 L Total Bilirubin 1.4 H AST 61 H ALT 37 Alkaline Phosphatase 212 H D Total Creatine Kinase 35 L CK-MB (CK-2) TNP CK-MB (CK-2) Rel Index TNP Troponin I 0.057 H NT-Pro-B Natriuret Pep 2130 H Total Protein 6.0 L Albumin 2.5 L Globulin 3.5 Albumin/Globulin Ratio 0.7 L Lipase 44 Procalcitonin 0.27 Urine Color Urine Appearance Urine pH Ur Specific [place] Urine Protein Urine Glucose (UA) Urine Ketones Urine Occult Blood Urine Nitrate Urine Bilirubin Urine Urobilinogen Ur Leukocyte Esterase Urine RBC Urine WBC Ur Squamous Epith Cells Amorphous Sediment Urine Bacteria Ur Culture Indicated? SARS-CoV-2 (PCR) Positive H Influenza A (RT-PCR) Flu a negative Influenza B (RT-PCR) Flu b negative RSV (PCR) Negative 05/19/22 11:38 WBC RBC Hgb Hct MCV MCH MCHC RDW Plt Count Neut % (Auto) Lymph % (Auto) [place] % (Auto) Eos % (Auto) Baso % (Auto) Neut # (Auto) Lymph # (Auto) [place] # (Auto) Eos # (Auto) Baso # (Auto) ABG pH ABG pCO2 ABG pO2 ABG HCO3 ABG Total CO2 ABG O2 Saturation ABG Base Excess FiO2 Sodium Potassium Chloride Carbon Dioxide BUN Creatinine Estimated GFR BUN/Creatinine Ratio Glucose Lactate 1.0 Calcium Total Bilirubin AST ALT Alkaline Phosphatase Total Creatine Kinase CK-MB (CK-2) CK-MB (CK-2) Rel Index Troponin I NT-Pro-B Natriuret Pep Total Protein Albumin Globulin Albumin/Globulin Ratio Lipase Procalcitonin Urine Color Urine Appearance Urine pH Ur Specific [place] Urine Protein Urine Glucose (UA) Urine Ketones Urine Occult Blood Urine Nitrate Urine Bilirubin Urine Urobilinogen Ur Leukocyte Esterase Urine RBC Urine WBC Ur Squamous Epith Cells Amorphous Sediment Urine Bacteria Ur Culture Indicated? SARS-CoV-2 (PCR) Influenza A (RT-PCR) Influenza B (RT-PCR) RSV (PCR) Assessment & Plan Assessment & Plan narrative: 1. Acute hypoxic respiratory failure 2. Hypotension Patient is severely ill and family has elected to pursue comfort care. Comfort care measures have been ordered. Patient is expected to pass away within the night. Code status: DNR Time Spent With Patient Critical Care time: I spent a total of [] minutes of critical care time on this patient's care today; this time is exclusive of procedural time.
[2022-05-19 18:24] LABS: Prothrombin Time 58.3 SECONDS (10.1-12.7)
--- NOTE | 2022-05-19 18:31 | PC.NURSE ---
LAB, INR 5.[address] ESPINOZA. NC DECREASED TO 4L PER MD.
[2022-05-19] MEDS: MORPHINE 2 MG/ML INJ 1 MG IV ×2 (20:22→22:31)
[2022-05-19] MEDS: SCOPOLAMINE 1 PATCH TOP (21:05)
--- NOTE | 2022-05-19 23:24 | PM.DDS.1 ---
Discharge Summary History of Illness Narrative: Per admitting provider: Patient is 86-year-old male with history of systolic heart failure, AFib, COPD, dementia, pacemaker, recent COVID, recent admission for heart failure, who was sent to ED from nursing facility due to respiratory distress.? He was noted to be quite tachypneic, hypoxic and hypotensive in the ED. family elected to have him admitted for comfort care as he was too unstable to return to nursing facility.? At the time he came to the floor patient was unresponsive with blood pressure of 75 systolic and with labored rapid breathing. Hospital Course Date of Admission: 05/19/22 13:39 Primary care provider: Gaurav Borja MD Consults: 05/19/22 16:30 Consult to Discharge Planning Routine Comment: Discharge Diagnosis: 1. Systolic congestive heart failure 2. COPD 3. Atrial fibrillation 4. Dementia Hospital Course: Mr. López presented to the hospital hypotensive and in respiratory distress. His family was present and patient had DNR, and comfort care POLST. He was admitted to the hospital for comfort measures and he and with family at bedside at 10:50pm. Objective Labs Result Diagrams: 05/19/22 09:50 05/19/22 11:26 Labs: Laboratory Results - last 24 hr 05/19/22 05/19/22 05/19/22 09:50 09:58 10:15 WBC 9.5 RBC 4.38 L Hgb 14.1 Hct 41.8 MCV 95.4 MCH 32.2 MCHC 33.8 RDW 14.8 Plt Count 90 L Neut % (Auto) 82.2 H Lymph % (Auto) 8.6 L [place] % (Auto) 7.8 Eos % (Auto) 0.9 L Baso % (Auto) 0.5 Neut # (Auto) 7800 H Lymph # (Auto) 800 L [place] # (Auto) 700 Eos # (Auto) 100 Baso # (Auto) 0 PT INR APTT ABG pH 7.51 H ABG pCO2 42.5 ABG pO2 57 L ABG HCO3 34 H ABG Total CO2 35 H ABG O2 Saturation 92 L ABG Base Excess 10.0 H FiO2 60 Sodium Potassium Chloride Carbon Dioxide BUN Creatinine Estimated GFR BUN/Creatinine Ratio Glucose Lactate Calcium Total Bilirubin AST ALT Alkaline Phosphatase Total Creatine Kinase CK-MB (CK-2) CK-MB (CK-2) Rel Index Troponin I NT-Pro-B Natriuret Pep Total Protein Albumin Globulin Albumin/Globulin Ratio Lipase Procalcitonin Urine Color Yellow Urine Appearance Clear Urine pH 5.0 Ur Specific [place] 1.010 Urine Protein Negative Urine Glucose (UA) Negative Urine Ketones Negative Urine Occult Blood 3+ H Urine Nitrate Negative Urine Bilirubin Negative Urine Urobilinogen 0.2 Ur Leukocyte Esterase Negative Urine RBC 10-30/hpf H Urine WBC 5-10/hpf H Ur Squamous Epith Cells 5-10 /hpf H Amorphous Sediment 2+ Urine Bacteria Few (2-10) H Ur Culture Indicated? Specimen cultured SARS-CoV-2 (PCR) Influenza A (RT-PCR) Influenza B (RT-PCR) RSV (PCR) 05/19/22 05/19/22 05/19/22 10:20 11:26 11:35 WBC RBC Hgb Hct MCV MCH MCHC RDW Plt Count Neut % (Auto) Lymph % (Auto) [place] % (Auto) Eos % (Auto) Baso % (Auto) Neut # (Auto) Lymph # (Auto) [place] # (Auto) Eos # (Auto) Baso # (Auto) PT 58.3 H D INR 5.0 H* APTT Cancelled ABG pH ABG pCO2 ABG pO2 ABG HCO3 ABG Total CO2 ABG O2 Saturation ABG Base Excess FiO2 Sodium 135 L Potassium 4.1 Chloride 99 Carbon Dioxide 32 BUN 44 H Creatinine 1.64 H Estimated GFR 40 L BUN/Creatinine Ratio 26.8 H Glucose 91 Lactate Calcium 7.0 L Total Bilirubin 1.4 H AST 61 H ALT 37 Alkaline Phosphatase 212 H D Total Creatine Kinase 35 L CK-MB (CK-2) TNP CK-MB (CK-2) Rel Index TNP Troponin I 0.057 H NT-Pro-B Natriuret Pep 2130 H Total Protein 6.0 L Albumin 2.5 L Globulin 3.5 Albumin/Globulin Ratio 0.7 L Lipase 44 Procalcitonin Urine Color Urine Appearance Urine pH Ur Specific [place] Urine Protein Urine Glucose (UA) Urine Ketones Urine Occult Blood Urine Nitrate Urine Bilirubin Urine Urobilinogen Ur Leukocyte Esterase Urine RBC Urine WBC Ur Squamous Epith Cells Amorphous Sediment Urine Bacteria Ur Culture Indicated? SARS-CoV-2 (PCR) Positive H Influenza A (RT-PCR) Flu a negative Influenza B (RT-PCR) Flu b negative RSV (PCR) Negative 05/19/22 05/19/22 11:35 11:38 WBC RBC Hgb Hct MCV MCH MCHC RDW Plt Count Neut % (Auto) Lymph % (Auto) [place] % (Auto) Eos % (Auto) Baso % (Auto) Neut # (Auto) Lymph # (Auto) [place] # (Auto) Eos # (Auto) Baso # (Auto) PT INR APTT ABG pH ABG pCO2 ABG pO2 ABG HCO3 ABG Total CO2 ABG O2 Saturation ABG Base Excess FiO2 Sodium Potassium Chloride Carbon Dioxide BUN Creatinine Estimated GFR BUN/Creatinine Ratio Glucose Lactate 1.0 Calcium Total Bilirubin AST ALT Alkaline Phosphatase Total Creatine Kinase CK-MB (CK-2) CK-MB (CK-2) Rel Index Troponin I NT-Pro-B Natriuret Pep Total Protein Albumin Globulin Albumin/Globulin Ratio Lipase Procalcitonin 0.27 Urine Color Urine Appearance Urine pH Ur Specific [place] Urine Protein Urine Glucose (UA) Urine Ketones Urine Occult Blood Urine Nitrate Urine Bilirubin Urine Urobilinogen Ur Leukocyte Esterase Urine RBC Urine WBC Ur Squamous Epith Cells Amorphous Sediment Urine Bacteria Ur Culture Indicated? SARS-CoV-2 (PCR) Influenza A (RT-PCR) Influenza B (RT-PCR) RSV (PCR)
--- NOTE | 2022-05-20 01:30 | PC.NURSE ---
NOC Shift Note- Patient on comfort care. Daughters at patients bedside. Scop Patch placed behind right ear. PRN IV Morphine given as ordered as needed for patient comfort. Patients daughter came out of room asking for me stating I think he stopped breathing. Patient assessed by this RN at 2255, patient found with no pulse, and no respirations. Patient pronounced at 2255, family at patients side, and Dr. Herrera notified. Allowing family all the time they need in room, let family known to call me is they are needing anything.
--- NOTE | 2022-05-20 04:51 | PC.NURSE ---
patient picked up by home at 0330. Patient family took home patients personal items.
== END 2022-05-20 03:30 | disposition home or self-care (01) ==
LOC: ED 13:05 → AC 13:41
PROVIDERS: Admitting Provider Internal Medicine; Emergency Provider Emergency Medicine; Family Provider Surgery; PCP Internal Medicine; Referring Provider Emergency Medicine; Visit Provider Internal Medicine
DX: J96.01 Acute respiratory failure with hypoxia (principal); U07.1 COVID-19; I50.20 Unspecified systolic (congestive) heart failure; I95.9 Hypotension, unspecified; J44.9 Chronic obstructive pulmonary disease, unspecified; I48.91 Unspecified atrial fibrillation; F03.90 Unspecified dementia, unspecified severity, without behavioral disturbance, psychotic disturbance, mood disturbance, and anxiety; Z66 Do not resuscitate; Z86.74 Personal history of sudden cardiac arrest; Z79.01 Long term (current) use of anticoagulants
CPT/HCPCS: 0241U; 36415; 36600; 71045; 80053; 81001; 82550; 82805; 83605; 83690; 83880; 84145; 84484; 85025; 85610; 87040; 87086; 93005; 96361; 96374; 96375; 96376; 99285; G0378; J0171; J2060; J2270; J3010